=== PATIENT | male | born 1970 | race Caucasian/White ===

== ENCOUNTER 2019-04-07 13:53 | Inpatient (IN) ==
[2019-04-07] MEDS ORDERED: SODIUM CHLORIDE 0.9% 1000ML 1,000 ML IV SCH (14:30)
[2019-04-07] MEDS ORDERED: LORazepam 0.5 MG/1 ML VIAL IV STA (14:30)
--- NOTE | 2019-04-07 14:39 | Emergency Department Note ---
Entered by Yulissa Cheema acting as a scribe for History of Present Illness General Chief complaint: Respiratory Problems Stated complaint: DX W/SMALL PE IN RT LUNG, SOB Time Seen by Provider: 04/07/19 14:16 Source: patient History of Present Illness Onset (ago): week(s) 3 Location: chest Pain Consistency: + other (persistent ) Maximum Pain Intensity: 0 Quality: + other (shortness of breath ) Associated symptoms: + other (positive leg swelling); no chest pain The patient is a 48 year old male who presents to the Emergency Room with complaints of persistent shortness of breath that began 3 weeks prior to arrival. The patient states that he was at [facility] 3 days ago and states that dopplers of his legs were negative but a CT of his chest showed a small PE in his right lung. He reports that he signed out AMA from this hospital as he did not feel comfortable being admitted there. The patient states that he was given one Lovenox shot while in [place] but was not given a prescription. The patient reports intermittent swelling in his legs, and states that he has had persistent leg swelling over the past 3 weeks. The patient denies chest pain. He states that he believes his shortness of breath is due to smoking and anxiety. The patient denies recent long trips or surgery. He denies alcohol or drug use, but states that he smokes between one and two packs of cigarettes per day. The patient states Home Medications Home Medications Medication Instructions Recorded Confirmed Type No Known Home Medications 04/07/19 04/07/19 History Allergies Allergy/AdvReac Type Severity Reaction Status Date / Time cefaclor [From Ceclor] Allergy Severe Hives Unverified 04/07/19 15:13 Penicillins Allergy Severe Rash Unverified 04/07/19 15:13 bee venom protein (honey bee) Allergy Intermediate Unknown Unverified 04/07/19 15:13 cat dander Allergy Intermediate itchy Unverified 04/07/19 15:13 watery eyes dust Allergy Intermediate itchy Uncoded 04/07/19 15:13 watery eyes Past Med/Surg History Medical History No significant past medical history Social History Feels Safe at Home: Yes Smoking Status: Current every day smoker Review of Systems See HPI for pertinent positives & negatives. and A total of 10 systems reviewed and were otherwise negative Physical Exam Vital Signs Vital Signs - 24 hr 04/07/19 14:07 04/07/19 14:23 04/07/19 14:27 Temperature 37.1 C Temperature Source Oral Sepsis Recent Fever Within 48 Hours No Sepsis Action Taken by Nursing No Action Required Pulse Rate 126 H 128 H 129 H Pulse Rate from SpO2 Sensor Pulse Rhythm Regular Pulse Strength Normal Respiratory Rate 24 28 H 34 H Respiratory Effort / Characteristics Non-Labored Spontaneous Respiratory Depth Normal Respiratory Pattern Regular Blood Pressure 146/98 H 140/118 H Blood Pressure Mean 114 125 Pulse Oximetry 97 Oxygen Delivery Method Room Air 04/07/19 14:30 04/07/19 14:40 04/07/19 14:50 Temperature Temperature Source Sepsis Recent Fever Within 48 Hours Sepsis Action Taken by Nursing Pulse Rate 132 H 123 H 122 H Pulse Rate from SpO2 Sensor Pulse Rhythm Pulse Strength Respiratory Rate 22 29 H 22 Respiratory Effort / Characteristics Respiratory Depth Respiratory Pattern Blood Pressure 147/121 H Blood Pressure Mean 129 Pulse Oximetry Oxygen Delivery Method 04/07/19 14:58 04/07/19 15:00 04/07/19 15:30 Temperature Temperature Source Sepsis Recent Fever Within 48 Hours Sepsis Action Taken by Nursing Pulse Rate 120 H 121 H 122 H Pulse Rate from SpO2 Sensor Pulse Rhythm Regular Pulse Strength Respiratory Rate 22 16 22 Respiratory Effort / Characteristics Respiratory Depth Respiratory Pattern Blood Pressure 150/108 H Blood Pressure Mean 122 Pulse Oximetry 94 Oxygen Delivery Method Room Air 04/07/19 16:10 04/07/19 16:30 04/07/19 17:00 Temperature Temperature Source Sepsis Recent Fever Within 48 Hours Sepsis Action Taken by Nursing Pulse Rate 120 H 118 H 120 H Pulse Rate from SpO2 Sensor Pulse Rhythm Pulse Strength Respiratory Rate 38 H 19 25 H Respiratory Effort / Characteristics Respiratory Depth Respiratory Pattern Blood Pressure 152/112 H 143/101 H 156/110 H Blood Pressure Mean 125 115 125 Pulse Oximetry Oxygen Delivery Method 04/07/19 17:31 04/07/19 18:00 04/07/19 18:30 Temperature Temperature Source Sepsis Recent Fever Within 48 Hours Sepsis Action Taken by Nursing Pulse Rate 122 H 124 H 124 H Pulse Rate from SpO2 Sensor 124 H 126 H Pulse Rhythm Pulse Strength Respiratory Rate 20 21 18 Respiratory Effort / Characteristics Respiratory Depth Respiratory Pattern Blood Pressure 167/114 H 144/117 H 136/121 H Blood Pressure Mean 131 126 126 Pulse Oximetry 97 97 Oxygen Delivery Method GENERAL: Patient is ashen in appearance. He appears anxious. EYES: The conjunctivae are clear. The pupils are round and reactive. EARS, NOSE, MOUTH AND THROAT: The nose is without any evidence of any deformity. Mucous membranes are moist tongue is midline NECK: The neck is nontender and supple. RESPIRATORY: Tachypnea was noted. There was mild conversational dyspnea noted. Diminished breath sounds are noted in the right lung field. CARDIOVASCULAR: Tachycardic rate with regular rhythm was noted. There is no def inite murmur noted. GASTROINTESTINAL: The abdomen is soft. Bowel sounds are present in all quadrants . Abdomen is nontender MUSCULOSKELETAL/EXTREMITIES: There is no evidence of gross deformity full range of motion is noted in the hips and shoulders SKIN: There is no obvious evidence of any rash. Skin is cool and diaphoretic. There is pedal edema bilaterally with venous stasis changes. NEUROLOGIC: Patient is awake alert and oriented x3. Course 1423: Past medical records reviewed. The patient was evaluated in room B11A. A complete history and physical exam was performed. 1636: I updated the patient on all results. 1715: [facility] for further evaluation. Consultations Consultation #1: [facility] for further evaluation. Time: 17:15 Administered Medications Ioversol (Optiray 320 125ml) 109 ml IV ONCE PRN PRN Reason: Interaction Checking Stop: 04/11/19 16:05 Last Admin: 04/07/19 16:07 Dose: 109 ml Documented by: [id number] Nicotine (Nicoderm Cq) 14 mg TD QAM [facility] Stop: 05/07/19 14:44 Last Admin: 04/07/19 14:58 Dose: 14 mg Documented by: [id number] Discontinued Medications Heparin Sodium (Porcine) (Heparin Sodium (Porcine)) Confirm Administered Dose 5,000 units .ROUTE .STK-MED ONE Stop: 04/07/19 16:22 Last Admin: 04/07/19 16:26 Dose: 5,000 units Documented by: [id number] Cosigned by: [id number] Heparin Sodium/Dextrose () 1 ea IV NOW STA; Protocol Stop: 04/07/19 15:47 Last Admin: 04/07/19 16:35 Dose: Not Given Documented by: [id number] Heparin Sodium/Dextrose (Heparin Sodium/Dextrose) Confirm Administered Dose 25,000 units IV .STK-MED ONE Stop: 04/07/19 16:21 Last Admin: 04/07/19 16:28 Dose: 1,350 units Documented by: [id number] Cosigned by: [id number] Sodium Chloride (Nss 1000ml) 1,000 mls @ 999 mls/hr IV .Q1H1M JAYLEEN Stop: 04/07/19 15:30 Last Infusion: 04/07/19 16:14 Dose: 0 mls/hr Documented by: [id number] Admin: 04/07/19 15:10 Dose: 999 mls/hr Documented by: [id number] Lorazepam (Ativan) 0.5 mg in 1 mls @ 1 mls/min IV NOW STA Stop: 04/07/19 14:31 Last Admin: 04/07/19 14:58 Dose: 1 mls/min Documented by: [id number] Medical Decision Making Differential Diagnosis Differential diagnosis: Etiologies such as cardiac ischemia, aortic dissection, pulmonary embolism, pneumonia, pneumothorax, musculoskeletal, infections, pericarditis, myocarditis, esophageal rupture, gastrointestinal, as well as others were entertained. Medical Records Attestation: I reviewed the patient's medical records. Home Medications Current Medication List: was personally reviewed by me Laboratory Data Attestation: I reviewed the patient's lab results. Result diagrams: 04/07/19 14:48 04/07/19 14:48 Lab Results 04/07/19 04/07/19 04/07/19 Range/Units 14:48 14:48 14:48 WBC 11.64 H (4.8-10.8) K/uL RBC 4.72 (4.7-6.1) M/uL Hgb 14.3 (14.0-18.0) g/dL POC Hgb (14.0-18.0) g/dl Hct 42.2 (42-52) % POC Hct (42-52) % MCV 89.4 (80-100) fL MCH 30.3 (25-34) pg MCHC 33.9 (32-36) g/dL RDW Std Deviation 46.7 H (36.4-46.3) fL RDW Coeff of Alexa 14.2 (11.5-14.5) % Plt Count 273 (130-400) K/uL MPV 9.8 (7.4-10.4) fL Immature Gran % (Auto) 0.4 % Neut % (Auto) 68.5 % Lymph % (Auto) 16.8 % [place] % (Auto) 10.8 % Eos % (Auto) 3.0 % Baso % (Auto) 0.5 % Immature Gran # (Auto) 0.05 H (0.00-0.02) K/uL Neut # (Auto) 7.96 H (1.4-6.5) K/uL Lymph # (Auto) 1.96 (1.2-3.4) K/uL [place] # (Auto) 1.26 H (0.11-0.59) K/uL Eos # (Auto) 0.35 (0-0.5) K/uL Baso # (Auto) 0.06 (0-0.2) K/uL PT 10.9 (9.0-12.0) Seconds INR 1.1 (0.9-1.1) APTT 24.7 (21.0-31.0) Seconds PTT Ratio 0.9 POC Sodium (135-144) mEq/L Sodium 139 (136-145) mmol/L POC Potassium (3.3-5.0) mEq/L Potassium 4.6 (3.5-5.1) mmol/L POC Chloride (101-112) mEq/L Chloride 104 (98-107) mmol/L Carbon Dioxide 30 (21-32) mmol/L POC Total CO2 (24-31) mEq/l Anion Gap 5.0 (3-11) POC Anion Gap (16-25) mmol/L POC BUN (7-18) mg/dl BUN 21 H (7-18) mg/dl Creatinine 1.14 (0.6-1.4) mg/dl POC Creatinine (0.6-1.3) mg/dl Est Cr Clr Drug Dosing 82.7 ml/min Est GFR ( Amer) 88.3 Est GFR (Non-Af Amer) 76.2 BUN/Creatinine Ratio 18.3 (10-20) Glucose 134 H (70-99) mg/dl POC Glucose (other) (70-99) mg/dl Calcium 9.1 (8.5-10.1) mg/dl POC Ioniz Calcium Nicola (1.12-1.32) mmol/l Total Bilirubin 0.4 (0.2-1) mg/dl AST 22 (15-37) U/L ALT 45 (12-78) U/L Alkaline Phosphatase 119 H (45-117) U/L Troponin I 0.046 H* (0-0.045) ng/ml Total Protein 6.8 (6.4-8.2) gm/dl Albumin 3.4 (3.4-5.0) gm/dl Globulin 3.4 (2.5-4.0) gm/dl Albumin/Globulin Ratio 1.0 (0.9-2) Lipase 120 (73-393) U/L 04/07/19 Range/Units 14:52 WBC (4.8-10.8) K/uL RBC (4.7-6.1) M/uL Hgb (14.0-18.0) g/dL POC Hgb 14.3 (14.0-18.0) g/dl Hct (42-52) % POC Hct 42 (42-52) % MCV (80-100) fL MCH (25-34) pg MCHC (32-36) g/dL RDW Std Deviation (36.4-46.3) fL RDW Coeff of Alexa (11.5-14.5) % Plt Count (130-400) K/uL MPV (7.4-10.4) fL Immature Gran % (Auto) % Neut % (Auto) % Lymph % (Auto) % [place] % (Auto) % Eos % (Auto) % Baso % (Auto) % Immature Gran # (Auto) (0.00-0.02) K/uL Neut # (Auto) (1.4-6.5) K/uL Lymph # (Auto) (1.2-3.4) K/uL [place] # (Auto) (0.11-0.59) K/uL Eos # (Auto) (0-0.5) K/uL Baso # (Auto) (0-0.2) K/uL PT (9.0-12.0) Seconds INR (0.9-1.1) APTT (21.0-31.0) Seconds PTT Ratio POC Sodium 137 (135-144) mEq/L Sodium (136-145) mmol/L POC Potassium 4.5 (3.3-5.0) mEq/L Potassium (3.5-5.1) mmol/L POC Chloride 108 (101-112) mEq/L Chloride (98-107) mmol/L Carbon Dioxide (21-32) mmol/L POC Total CO2 27 (24-31) mEq/l Anion Gap (3-11) POC Anion Gap 7.0 L (16-25) mmol/L POC BUN 21 H (7-18) mg/dl BUN (7-18) mg/dl Creatinine (0.6-1.4) mg/dl POC Creatinine 1.0 (0.6-1.3) mg/dl Est Cr Clr Drug Dosing ml/min Est GFR ( Amer) Est GFR (Non-Af Amer) BUN/Creatinine Ratio (10-20) Glucose (70-99) mg/dl POC Glucose (other) 142 H (70-99) mg/dl Calcium (8.5-10.1) mg/dl POC Ioniz Calcium Nicola 1.14 (1.12-1.32) mmol/l Total Bilirubin (0.2-1) mg/dl AST (15-37) U/L ALT (12-78) U/L Alkaline Phosphatase (45-117) U/L Troponin I (0-0.045) ng/ml Total Protein (6.4-8.2) gm/dl Albumin (3.4-5.0) gm/dl Globulin (2.5-4.0) gm/dl Albumin/Globulin Ratio (0.9-2) Lipase (73-393) U/L Imaging Data Radiologist's Impression: Radiology results as stated below per my review and the radiologist's interpretation: CT angio chest PE protocol CT DOSE: 386.43 mGy.cm HISTORY: 48 years-old Male with Chest Pain, eval for PE. Acute chest pain TECHNIQUE: Multiple CTA images of the chest were obtained after the intravenous administration of 109 ml Optiray 320. Coronal and sagittal MIPS were obtained from the axial data set and were submitted for review. All measurements were ob tained according to NASCET criteria. A dose lowering technique was utilized adhering to the principles of ALARA. COMPARISON: None. FINDINGS: CTA: Cardiomegaly. Coronary arterial calcifications also noted. The left heart structures and thoracic aorta are not well opacified secondary to contrast bolus timing. Reflux of contrast into the IVC and hepatic veins. The pulmonary arterial tree is opacified to the level of the distal segmental branches. There are multiple filling defects noted within segmental branches of the bilateral lower lobes compatible with pulmonary emboli (for example image 105 series 4 and image 149 of series 4). The subsegmental branches are not well opacified secondary to contrast bolus timing. No evidence of associated right heart strain. Contrast opacified collateral veins of the right shoulder. CT CHEST: No dominant thyroid nodule identified. No definite adenopathy by CT size criteria. Trace right pleural effusion. Dependent subsegmental bibasilar opacities are suggestive of atelectasis. No definite pulmonary infarction identified. No overt pulmonary edema or lobar airspace consolidation typical for pneumonia. There are a few fissural lymph nodes seen about the left lung base adjacent to the lingula. Central airways appear to be patent. No acute process of the imaged upper abdomen. Soft tissues are within normal limits. Bones of the chest appear grossly intact. IMPRESSION: 1. Segmental pulmonary emboli of the bilateral lower lobes. No evidence of right heart strain or definite pulmonary infarction. 2. Mild subsegmental dependent bibasilar atelectasis with trace right pleural effusion. 3. Cardiomegaly with coronary arterial calcifications. The above report was generated using voice recognition software. It may contain grammatical, syntax or spelling errors. Electronically signed by: Peter Key M.D. 04/07/2019 4:19 PM ECG Data Attestation: I personally reviewed and interpreted this ECG as follows: Indication: SOB/dyspnea Rate (beats per minute): 122 Rhythm: sinus tachycardia Findings: + other (LVH; no acute ST segment abnormalities) Comparison ECG Date: no prior available Blood Pressure Blood Pressure Findings: Elevated blood pressure Blood Pressure Disposition: further management by hospitalist TINY Narrative The patient is a 48-year-old male with a long smoking history who presented to the emergency department for an evaluation of chest pain. The patient was tachycardic. He was not significantly hypoxic. He states that he was evaluated at [facility] and diagnosed with a pulmonary embolism this week. The patient signed out AGAINST MEDICAL ADVICE and was not started on blood thinners at that time. The patient was started on heparin in the emergency department. The patient was also given a nicotine patch as well as Ativan for significant anxiety. He was treated with IV fluids. I discussed the patient's laboratory and radiographic studies with him. He was reevaluated multiple times. Because of his diagnosis I also discussed his case with the on-call [facility] talist. They have agreed to evaluate the patient in the emergency department for further management and disposition Impression & Plan Pulmonary embolism, Elevated troponin, Sinus tachycardia Critical Care Time Critical Care Time: Yes Total Critical Care Time: 60 I have personally spent greater than 60 minutes of critical care time in the direct management of this patient. This includes bedside care, interpretation of diagnostic studies, and testing, discussion with consultants, patient, and family members, and other required patient management activities. This 60 minutes is in excess of all separately billable procedures. Discharge Plan Visit Data Chief Complaint: Respiratory Problems Stated Complaint: DX W/SMALL PE IN RT LUNG, SOB ED Provider: Tylor Bruce Discharge Problem: Pulmonary embolism, Elevated troponin, Sinus tachycardia Patient Disposition: Being Evaluated by Hospitalist Forms Stand Alone Forms: [facility] Prescriptions Prescriptions: No Action No Known Home Medications RF: 0 Referrals Referrals: PCP,NO [Primary Care Provider] - Discharge Problem: Pulmonary embolism Qualifiers: Pulmonary embolism type: unspecified Chronicity: acute Acute cor pulmonale presence: without acute cor pulmonale Qualified Code(s): I26.99 - Other pulmonary embolism without acute cor pulmonale The scribe's documentation has been prepared under my direction and personally reviewed by me in its entirety. I confirm that the note above accurately reflects all work, treatment, procedures, and medical decision making performed by me.
[2019-04-07 14:58] LABS: Basophils # (auto) 0.06 K/uL (0-0.2); Basophils % (auto) 0.5 %; Eosinophils # (auto) 0.35 K/uL (0-0.5); Hematocrit (blood only) 42.2 % (42-52); Hemoglobin 14.3 g/dL (14.0-18.0); Immature Granulocytes # (auto) 0.05 K/uL (0.00-0.02); Immature Granulocytes % (auto) 0.4 %; Lymphocytes # (auto) 1.96 K/uL (1.2-3.4); Lymphocytes % (auto) 16.8 %; Mean Corpuscular Hgb Conc 33.9 g/dL (32-36); Mean Corpuscular Volume 89.4 fL (80-100); Mean Platelet Volume 9.8 fL (7.4-10.4); Monocytes # (auto) 1.26 K/uL (0.11-0.59); Monocytes % (auto) 10.8 %; Neutrophils # (auto) 7.96 K/uL (1.4-6.5); Neutrophils % (auto) 68.5 %; Platelet Count 273 K/uL (130-400); RDW Coefficient of Variation 14.2 % (11.5-14.5); RDW Standard Deviation 46.7 fL (36.4-46.3); Red Blood Count 4.72 M/uL (4.7-6.1); White Blood Count 11.64 K/uL (4.8-10.8)
[2019-04-07] MEDS: NICOTINE 14 MG/24 HR PATCH TD SCH (14:58)
[2019-04-07 15:07] LABS: iSTAT Hemoglobin 14.3 g/dl (14.0-18.0); iSTAT Ionized Calcium 1.14 mmol/l (1.12-1.32); iSTAT Potassium 4.5 mEq/L (3.3-5.0)
[2019-04-07 15:09] LABS: INR 1.1 (0.9-1.1); Partial Thromboplastin Ratio 0.9; Partial Thromboplastin Time 24.7 Seconds (21.0-31.0); Prothrombin Time 10.9 Seconds (9.0-12.0)
[2019-04-07 15:17] LABS: Albumin Level 3.4 gm/dl (3.4-5.0); BUN Creatinine Ratio 18.3 (10-20); Calcium 9.1 mg/dl (8.5-10.1); Creatinine Clr Calc Pharmacy 82.7 ml/min; Est GFR (African American) 88.3; Est GFR (Non-African American) 76.2; Potassium 4.6 mmol/L (3.5-5.1)
[2019-04-07 15:35] LABS: Bilirubin,Total 0.4 mg/dl (0.2-1); Globulin 3.4 gm/dl (2.5-4.0); Total Protein 6.8 gm/dl (6.4-8.2); Troponin I 0.046 ng/ml (0-0.045)
[2019-04-07] MEDS ORDERED: OPTIRAY 320 125ml IV PRN (16:06)
[2019-04-07] MEDS ORDERED: HEPARIN 25000 UNIT/500 ML D5W IV ONE (16:20)
--- NOTE | 2019-04-07 16:20 | CT Scan Report ---
CT angio chest PE protocol CT DOSE: 386.43 mGy.cm HISTORY: 48 years-old Male with Chest Pain, eval for PE. Acute chest pain TECHNIQUE: Multiple CTA images of the chest were obtained after the intravenous administration of 109 ml Optiray 320. Coronal and sagittal MIPS were obtained from the axial data set and were submitted for review. All measurements were obtained according to NASCET criteria. A dose lowering technique w as utilized adhering to the principles of ALARA. COMPARISON: None. FINDINGS: CTA: Cardiomegaly. Coronary arterial calcifications also noted. The left heart structures and thoracic aor ta are not well opacified secondary to contrast bolus timing. Reflux of contrast into the IVC and hep atic veins. The pulmonary arterial tree is opacified to the level of the distal segmental branches. T here are multiple filling defects noted within segmental branches of the bilateral lower lobes compat ible with pulmonary emboli (for example image 105 series 4 and image 149 of series 4). The subsegment al branches are not well opacified secondary to contrast bolus timing. No evidence of associated righ t heart strain. Contrast opacified collateral veins of the right shoulder. CT CHEST: No dominant thyroid nodule identified. No definite adenopathy by CT size criteria. Trace right pleura l effusion. Dependent subsegmental bibasilar opacities are suggestive of atelectasis. No definite pul monary infarction identified. No overt pulmonary edema or lobar airspace consolidation typical for pn eumonia. There are a few fissural lymph nodes seen about the left lung base adjacent to the lingula. Central airways appear to be patent. No acute process of the imaged upper abdomen. Soft tissues are within normal limits. Bones of the alcon st appear grossly intact. IMPRESSION: 1. Segmental pulmonary emboli of the bilateral lower lobes. No evidence of right heart strain or defi nite pulmonary infarction. 2. Mild subsegmental dependent bibasilar atelectasis with trace right pleural effusion. 3. Cardiomegaly with coronary arterial calcifications. The above report was generated using voice recognition software. It may contain grammatical, syntax o r spelling errors. Electronically signed by: Peter Key M.D. 04/07/2019 4:19 PM
[2019-04-07] MEDS ORDERED: HEPARIN SOD 5,000 UNIT/0.5 ML VIAL ONE (16:21)
--- NOTE | 2019-04-07 18:00 | History & Physical Report ---
Date of Service April 07, 2019 Assessment & Plan (1) Pulmonary embolism: 48 y/o M who denies a significant medical history, although he does smoke 2 packs of cigarettes daily and has not been to an MD in over 10 years. He presented to [facility] with dyspnea and LE edema. He was diagnosed with BL PEs. He states that LE dopplers were negative. He then proceeded to leave A after receiving a dose of SQ Lovenox. He presents today with persistent symptoms. He denies CP and did not display hypoxia, however, he was considerably tachycardic at the time of evaluation. A CTA was repeated and demonstrated segmental pulmonary emboli of the bilateral lower lobes without evidence of right heart strain or definite pulmonary infarction. Cardiomegaly with coronary arterial calcifications is also seen. He states his edema has been present and progressive for 2 weeks. The pt's BP was persistently elevated while in the ER. Initial labs were notable for an elevated troponin. An EKG did not show a strain patter. Sinus tach and LVH were apparent. 1) BL PE - no known precipitating factors. Placed on Lovenox. Hypercoag workup can be completed in the outpt setting. A malignancy workup would make good sense considering his family history and heavy smoking. 2) Edema - relatively new-onset. An echo is pending as vein engorgement on exam in addition to the edema and an elevated trop may indicate heart strain. It is noted that his edema preceded dyspnea and the PE finding by 2 weeks per the pt. He examines as SVC syndrome considering the degree of engorgement of veins over his head and neck, however, there was no mention of a mass on CT. 3) Elevated trop - likely owing to PEs. There is significant coronary calcification on the CT, so the pt is at risk of early CAD. We will check a lipid profile an may need to consult cardio as it is not clear if he will follow-up. We will trend his enzymes. 4) HTN - likely undiagnosed - we will lower his pressure without rate agents as he is likely compensating with tachycardia. Norvasc or an SALONI will be started. 5) Smoking - he is told he will need to stop smoking - he provides that he may benefit from treatment for anxiety. A patch was applied in the ER. Full code - Lovenox prophylaxis Total time for this admit including review of labs, meds, imaging, records - discussion with pt and ER attending - 37 min Present on Admission?: Yes (2) Elevated troponin: Present on Admission?: Yes History of Present Illness Chief Complaint: CP, SOB Primary Care Provider: NO PCP 48 y/o M who denies a significant medical history, although he does smoke 2 packs of cigarettes daily and has not been to an MD in over 10 years. He presented to [facility] with dyspnea and LE edema. He was diagnosed with BL PEs. He states that LE dopplers were negative. He then proceeded to leave A after receiving a dose of SQ Lovenox. He presents today with persistent symptoms. He denies CP and did not display hypoxia, however, he was considerably tachycardic at the time of evaluation. A CTA was repeated and demonstrated segmental pulmonary emboli of the bilateral lower lobes without evidence of right heart strain or definite pulmonary infarction. Cardiomegaly with coronary arterial calcifications is also seen. He states his edema has been present and progressive for 2 weeks. The pt's BP was persistently elevated while in the ER. Initial labs were notable for an elevated troponin. An EKG did not show a strain patter. Sinus tach and LVH were apparent. PMH: Denies known PMH Surgical: Denies Social: His current vocation is caring for his elderly mother. He smokes 2 packs/day for > 20 yrs. He does not drink alcohol, smokes marijuana rarely. Family: Father owing to COPD, bladder CA - had bypass for CAD. Mother is alive with dementia. Allergies Allergy/AdvReac Type Severity Reaction Status Date / Time cefaclor [From [facility]] Allergy Severe Hives Unverified 04/07/19 15:13 Penicillins Allergy Severe Rash Unverified 04/07/19 15:13 bee venom protein (honey bee) Allergy Intermediate Unknown Unverified 04/07/19 15:13 cat dander Allergy Intermediate itchy Unverified 04/07/19 15:13 watery eyes dust Allergy Intermediate itchy Uncoded 04/07/19 15:13 watery eyes Home Medications Home Medications Medication Instructions Recorded Confirmed Type No Known Home Medications 04/07/19 04/07/19 History Past Med/Surg History Medical History No significant past medical history Social History Feels Safe at Home: Yes Smoking Status: Current every day smoker Review of Systems Review of Systems: Gen: Denies fevers, night sweats, rigors, fatigue, malaise, weight loss/gain ENT: Denies congestion, throat pain, hearing loss Eyes: Denies acute visual changes CV: Reported pleuritic CP initially Pulmonary: + dyspnea GI: Denies N/V, diarrhea, constipation Neuro: Denies acute or unilateral weakness, acute gait impairment, headache or acute visual changes Musculoskeletal: Progressive LE edema Endocrine: Denies polydipsia, polyuria Skin: Denies acute rashes or ulcers - LE erythema Physical Exam Physical Exam: General: Anxious, middle aged M, AAO x 3, no distress ENT: No erythema or exudates, no thrush Eyes: ANNY, EOMI Head and neck: Distention of veins is prominent over the pt's neck, head and clavicular area. Chest/heart: Nontender, S1,2, tachy, no murmurs Lungs: CTAB, no wheezing or crackles Abdomen: Nontender, nondistended, BS+ Neuro: AAO x 3, speech is clear, no unilateral weakness or loss of sensation, coordination intact Musculoskeletal: No joint inflammation, muscle tenderness, FROM Skin: No acute rashes or ulcers Extremities: No clubbing, cyanosis - +3 edema BL - erythema without warmth Results & Data Vital Signs (Past 12 Hours) Vital Signs Temp Pulse Resp BP Pulse Ox 04/07/19 16:30 118 H 19 143/101 H 04/07/19 16:10 120 H 38 H 152/112 H 04/07/19 15:30 122 H 22 150/108 H 04/07/19 15:00 121 H 16 04/07/19 14:58 120 H 22 94 04/07/19 14:50 122 H 22 04/07/19 14:40 123 H 29 H 04/07/19 14:30 132 H 22 147/121 H 04/07/19 14:27 129 H 34 H 04/07/19 14:23 128 H 28 H 140/118 H 04/07/19 14:07 98.8 F 126 H 24 146/98 H 97 Diagnostic Findings CTA: 1. Segmental pulmonary emboli of the bilateral lower lobes. No evidence of right heart strain or definite pulmonary infarction. 2. Mild subsegmental dependent bibasilar atelectasis with trace right pleural effusion. 3. Cardiomegaly with coronary arterial calcifications. PG Care Time/CCT Total # of Minutes Spent Total Time Spent with Patient: Total time spent is greater than 50% in coordination of care (as documented) at patient's floor/unit and/or counseling patient: (1) Pulmonary embolism Acute cor pulmonale presence: without acute cor pulmonale Chronicity: acute Pulmonary embolism type: unspecified Qualified Code(s): I26.99 - Other pulmonary embolism without acute cor pulmonale
[2019-04-07] MEDS ORDERED: Heparin Adult LOW DOSE Wt-Based Dextrose 5% 25,000 units/500 mL IV SCH (19:00)
[2019-04-07] MEDS ORDERED: POLYETHYLENE (MIRALAX) 17 GM PACK PO PRN (19:41)
[2019-04-07] MEDS ORDERED: ZOLPIDEM TARTRATE 5 MG TAB PO PRN (19:41)
[2019-04-07] MEDS ORDERED: LISINOPRIL 5 MG TAB PO ONE (19:41)
[2019-04-07] MEDS ORDERED: MAGNESIUM HYDROXIDE SUSP 30 ML UDC PO PRN (19:41)
[2019-04-07] MEDS ORDERED: ONDANSETRON INJ 2 MG/ML 2 ML VIAL IV PRN (19:41)
[2019-04-07] MEDS ORDERED: ALUMINUM/MAGNESIUM SUSP 30 ML UDC PO PRN (19:41)
[2019-04-07] MEDS: ENOXAPARIN 80 MG/0.8 ML SYR SQ SCH (21:00)
[2019-04-08] MEDS: ACETAMINOPHEN 325 MG TAB PO PRN ×2 (00:43→22:40)
[2019-04-08] MEDS: ENOXAPARIN 80 MG/0.8 ML SYR SQ SCH (07:47)
[2019-04-08] MEDS ORDERED: NICOTINE 14 MG/24 HR PATCH TD SCH (09:00)
[2019-04-08] MEDS: NICOTINE 14 MG/24 HR PATCH TD SCH (09:40)
[2019-04-08] MEDS ORDERED: FUROSEMIDE 80 MG in SYRINGE 0 ML IV ONE (10:20)
[2019-04-08] MEDS ORDERED: FUROSEMIDE 40 MG in SYRINGE 0 ML IV ONE (10:45)
[2019-04-08] MEDS: ASPIRIN 81 MG ECTAB PO SCH (10:54)
[2019-04-08] MEDS ORDERED: LORazepam 0.5 MG/1 ML VIAL IV PRN (11:02)
--- NOTE | 2019-04-08 11:06 | Hospitalist Progress Note ---
Date of Service April 08, 2019 Assessment & Plan (1) Pulmonary embolism: This pt is a 48 y/o male who denies a significant medical history, although he does smoke 2 packs of cigarettes daily and has not been to an MD in over 10 years. He presented to [facility] with dyspnea and LE edema. He was diagnosed with BL PEs. He states that LE dopplers were negative. He then proceeded to leave [facility] after receiving a dose of SQ Lovenox. He presents here 2 days later with persistent symptoms. He denies CP and did not display hypoxia, however, he was considerably tachycardic at the time of evaluation. A CTA was repeated and demonstrated segmental pulmonary emboli of the bilateral lo wer lobes without evidence of right heart strain or definite pulmonary infarction. Cardiomegaly with coronary arterial calcifications is also seen. He states his edema has been present and progressive for 2 weeks. Initial labs were notable for an elevated troponin. An EKG did not show a strain pattern. Sinus tach and LVH were apparent. BL PE - no known precipitating factors, but now with known severely reduced LV function, could have caused a low flow state and venous congestion in legs leading to DVTs. Reportedly, Dopplers LEs at [place] were negative, but may have moved all clot to the lungs. No evidence of Pulm malignancy on CT chest. Not requiring O2 Has some mild RV dysfunction on ECHO but this is likely more from left sided heart failure -Placed on Lovenox, but has phobia of needles--> change to heparin gtt and eventually to Xarelto upon discharge (after cardiac cath) for at least 6 months. -A malignancy workup would make sense considering his family history and heavy smoking. (2) Cardiomyopathy: LVEF 15-20% on ECHO With coronary artery calcifications seen on CT chest and heavy smoking history, likely ischemic in nature -plan for cardiac cath once tuned up from a CHF perspective-perhaps in the next 1-2 days -will need ongoing close f/u with Cardio after discharge (3) Acute systolic CHF (congestive heart failure): New, Severe LV dysfunction as above, possibly ischemic -diurese with IV lasix 40mg bid -follow BMP, Mg++ and replace lytes as needed -daily weights, strict I/Os, low Na+ diet, fluid restrict -eventually will need to add on beta kunal, ACEi -needs ischemic eval as above, cardiac cath likely in the next 2 days (4) CAD (coronary artery disease), [place] coronary artery: Suspected, due to coronary artery calcifications seen on chest CT, CHF, and +troponin Secondary to smoking, +FH -start ASA 81mg daily -start atorvastatin 80mg daily -will add beta kunal likely tomorrow after diuresis -check lipid panel, HgbA1C (5) Elevated troponin: mildly elevated at 0.046/0.053 Secondary to strain from CHF in setting of likely underlying CAD -ECG with nonspecific ST-T changes -plan for cardiac cath as above (6) Pulmonary hypertension: Moderate, as seen on ECHO here Could be secondary to Pulm disease or PEs or from hypervolemia -diurese (7) Mitral regurgitation: Mod-severe seen on ECHO here -secondary to LV dysfunction and hypervolemia? Or the cause of LV dysfunction i.e. primary MR -Cardio suggests either LOLITA or repeating TTE after diuresis to reassess (8) Sinus tachycardia: secondary to severely reduced LVEF, compensatory -not as likely to be from PEs -monnitor on tele -start beta kunal after CHF is compensated (9) Situational anxiety: worsening anxiety over many months with staying at home all the time, taking care fo declining mother -denies depressive symptoms, denies SI or HI Also with severe phobia of needles -will try to minimize blood draws as much as possible -order IV ativan prn anxiety -consider adding SSRI such as Zoloft prior to discharge -he declines Psychiatric consultation (10) Tobacco abuse: SMokes 2 PPD -encouraged cessation -continue Nicotine patch and increase dose to 21mg Prophylaxis--> heparin gtt Dispo-remain on PCU Subjective Pt denies SOB or CP. He is urinating quite a bit since receiving lasix. Denies lightheadedness or abdominal pain. He tells me repeatedly about his severe phobia of needles. He feels quite anxious being in the hospital and reports overall generalized anxiety worsening the last few months with taking care of his mom who has demen tia and is declining. He stays with her 25/04. He is also anxious upon hearing of his new cardiomyopathy and blood clots in his lungs. Tele with sinus tach 100s-120s. I discussed the case with the Lead Etl Developer today Review of Systems Review of Systems: All systems reviewed & are unremarkable except as noted in HPI & below Physical Exam Constitutional: average body habitus, cooperative and + edematous; no acute distress Eyes: PERRL, conjunctivae normal, anicteric sclerae ENMT: external ear and nose normal, oropharynx normal Neck: trachea midline, no thyromegaly Respiratory: normal respiratory effort; no labored breathing Auscultation: no crackles, no rhonchi and no wheezes Cardiovascular: Rate/Rhythm: regular rhythm and + tachycardic Heart Sounds: + murmur (2/6 at LLSB) Vessels: + JVD Extremities: + edema (2+ pitting edema of legs to the knees bilat) Gastrointestinal (Abdomen): normal bowel sounds, soft, nontender, no hepatosplenomegaly Musculoskeletal: Extremities: no cyanosis and no clubbing Skin: + rash (bilat legs with mild erythema and pinpoint erythematous rash anteriorly) and + scar (multiple small, circular purplish scars on upper arms, thighs from "picking) Neurologic: moves all extremities and awake; no focal motor deficits Psychiatric: Orientation: alert, oriented x 3 and cooperative Eye Contact: good eye contact Speech: + pressured speech Affect: + anxious affect Mood: + anxious mood Thought Process: goal directed thought process Suicidal Thoughts: denies suicidal thoughts Homicidal Thoughts: denies homicidal thoughts Results & Data Vital Signs (Past 12 Hours) Vital Signs Temp Pulse Pulse Resp BP Pulse Ox Pulse Ox 04/08/19 08:43 37.2 C 110 H 18 133/88 98 04/08/19 08:37 97 04/08/19 08:33 112 H 04/08/19 08:29 97 04/08/19 03:42 36.3 C L 102 H 21 141/99 H 97 04/08/19 00:00 115 H 118 H 20 132/96 99 Laboratory Results 04/08/19 04/08/19 04/08/19 Range/Units 22:57 22:57 22:57 WBC 13.06 H (4.8-10.8) K/uL RBC 4.70 (4.7-6.1) M/uL Hgb 14.0 (14.0-18.0) g/dL Hct 41.9 L (42-52) % MCV 89.1 (80-100) fL MCH 29.8 (25-34) pg MCHC 33.4 (32-36) g/dL RDW Std Deviation 46.3 (36.4-46.3) fL RDW Coeff of Alexa 14.1 (11.5-14.5) % Plt Count 239 (130-400) K/uL MPV 10.1 (7.4-10.4) fL Immature Gran % (Auto) 0.4 % Neut % (Auto) 68.9 % Lymph % (Auto) 16.8 % Brule % (Auto) 9.6 % Eos % (Auto) 3.8 % Baso % (Auto) 0.5 % Immature Gran # (Auto) 0.05 H (0.00-0.02) K/uL Neut # (Auto) 9.01 H (1.4-6.5) K/uL Lymph # (Auto) 2.19 (1.2-3.4) K/uL Brule # (Auto) 1.25 H (0.11-0.59) K/uL Eos # (Auto) 0.49 (0-0.5) K/uL Baso # (Auto) 0.07 (0-0.2) K/uL APTT (21.0-31.0) Seconds PTT Ratio Sodium 139 (136-145) mmol/L Potassium 3.5 D (3.5-5.1) mmol/L Chloride 101 (98-107) mmol/L Carbon Dioxide 31 (21-32) mmol/L Anion Gap 7.0 (3-11) BUN 23 H (7-18) mg/dl Creatinine 1.20 (0.6-1.4) mg/dl Est Cr Clr Drug Dosing 81.1 ml/min Est GFR ( Amer) 83.0 Est GFR (Non-Af Amer) 71.6 BUN/Creatinine Ratio 19.4 (10-20) Glucose 129 H (70-99) mg/dl Estimat Average Glucose Pending Hemoglobin A1c Pending Calcium 8.4 L (8.5-10.1) mg/dl Magnesium 1.9 (1.8-2.4) mg/dl TSH 4.240 (0.300-4.500) uIu/ml 04/08/19 Range/Units 22:57 WBC (4.8-10.8) K/uL RBC (4.7-6.1) M/uL Hgb (14.0-18.0) g/dL Hct (42-52) % MCV (80-100) fL MCH (25-34) pg MCHC (32-36) g/dL RDW Std Deviation (36.4-46.3) fL RDW Coeff of Alexa (11.5-14.5) % Plt Count (130-400) K/uL MPV (7.4-10.4) fL Immature Gran % (Auto) % Neut % (Auto) % Lymph % (Auto) % Brule % (Auto) % Eos % (Auto) % Baso % (Auto) % Immature Gran # (Auto) (0.00-0.02) K/uL Neut # (Auto) (1.4-6.5) K/uL Lymph # (Auto) (1.2-3.4) K/uL Brule # (Auto) (0.11-0.59) K/uL Eos # (Auto) (0-0.5) K/uL Baso # (Auto) (0-0.2) K/uL APTT 38.2 H (21.0-31.0) Seconds PTT Ratio 1.4 Sodium (136-145) mmol/L Potassium (3.5-5.1) mmol/L Chloride (98-107) mmol/L Carbon Dioxide (21-32) mmol/L Anion Gap (3-11) BUN (7-18) mg/dl Creatinine (0.6-1.4) mg/dl Est Cr Clr Drug Dosing ml/min Est GFR ( Amer) Est GFR (Non-Af Amer) BUN/Creatinine Ratio (10-20) Glucose (70-99) mg/dl Estimat Average Glucose Hemoglobin A1c Calcium (8.5-10.1) mg/dl Magnesium (1.8-2.4) mg/dl TSH (0.300-4.500) uIu/ml PG Care Time/CCT Total # of Minutes Spent Total Time Spent with Patient: Total time spent is greater than 50% in coordination of care (as documented) at patient's floor/unit and/or counseling patient: (1) Pulmonary embolism Acute cor pulmonale presence: without acute cor pulmonale Chronicity: acute Pulmonary embolism type: unspecified Qualified Code(s): I26.99 - Other pulmonary embolism without acute cor pulmonale
--- NOTE | 2019-04-08 11:26 | Cardiology Consultation ---
Date of Consultation April 08, 2019 Assessment & Plan (1) Acute systolic CHF (congestive heart failure): He is significantly hypervolemic. Recommend Lasix 40 mg IV twice daily starting now. If he does not diuresed sufficiently, we will increase dose and consider vaso dilator to reduce preload. Would try to diurese at least 1-2 L negative today. Strict I&Os, low-sodium diet, and daily weights. We discussed the diagnosis in detail. Based on the fact that he left AMA from outside hospit al 4 days ago and that he mentioned leaving to take care of his mother, there are concerns for medical compliance. We discussed the fact that given his cardiac condition, as well as pulmonary emboli, there is increased mortality and that he may from his cardiac condition, especially if he does not receive treatment. (2) Cardiomyopathy: Etiology not certain but given risk factors and coronary artery calcifications, ischemic heart disease is a possibility. Will not start beta- kunal now as he is decompensated but would like to try to initiate low-dose beta-kunal tomorrow. He received SALONI-inhibitor yesterday. Going forward, would like to continue SALONI-inhibitor or Entresto. Continue diuresis. Cardiac catheterization recommended and discussed with him today. Would first recommend diuresis and then consider coronary angiography with right heart catheterization later this week. He was noncommittal. We discussed the fact that if multi vessel CAD is playing a role, revascularization may allow for improvement and better quality of life. (3) Mitral regurgitation: Significant mitral regurgitation. This could be primary but also could be due to mitral annular dilation and also hypervolemia. Consider transesophageal echo or at least repeating transthoracic images after diuresis. (4) Pulmonary hypertension: Likely secondary to hypervolemia and pulmonary emboli may also be playing a role. Would repeat measurement after diuresis. If he is agreeable to cardiac catheterization, would recommend right heart catheterization as well. (5) Elevated troponin: Likely secondary to decompensated systolic CHF and pulmonary emboli, possibly with underlying ischemic heart disease. (6) Pulmonary embolism: Anticoagulation as per primary service. As cardiac catheterization may be performed at some point during this hospital stay, would consider heparin or low-molecular weight heparin while hospitalized prior to the procedure. (7) CAD (coronary artery disease), [place] coronary artery: Coronary artery calcifications on CT scan. Recommend aspirin 81 mg daily. Recommend high-intensity statin therapy. Check lipid profile. No beta-kunal for now but once diuresed somewhat, would consider beta-kunal at that point. No angina. (8) Tobacco abuse: Smoking cessation. Disposition: Highly complex medical issues. Continue telemetry to monitor her ventricular arrhythmia. Patient care discussed with Dr. Pelletier of the primary hospitalist service. Cardiology will continue to follow. It was stressed to him that there is increased mortality with his cardiac diagnosis and it was strongly recommended that he undergo diuresis and treatment as well as coronary angiography. He left AMA recently from another hospital with diagnosis of PE, without treatment. Thank you for allowing me to participate in the care of your patient. Please call for any other questions or concerns. Sincerely, Abhishek Horowitz M.D. History of Present Illness Reason for Consultation: CHF Requesting Physician: Dr. Pelletier Attending Physician: Niya Pelletier MD History of Present Illness Mr. Mckeon is a 48-year-old gentleman with recently diagnosed pulmonary emboli who presents to [facility] with shortness of breath and edema. He was in [facility] 4 days ago with shortness of breath and was diagnosed with bilateral pulmonary emboli. He was given 1 dose of Lovenox and then signed out against medical advice. He then presented here and was admitted on 04/07/2019 with worsening shortness of breath and bilateral lower extremity edema. He states that he does not follow with physicians and takes no medications. He carries no long-term diagnosis such as hypertension, dyslipidemia, or diabetes. He is a chronic smoker and has a family history of coronary artery disease but carries no such diagnosis himself. For the past 2 weeks or so he has increased lower extremity edema and increased shortness of breath. He admits that he has had edema on and off for several years but more recently things have worsened. Because of the symptoms he presented to [facility] as noted above before leaving against medical advice. He admits to orthopnea and has been sleeping much because of this. He also admits that he consumes foods high in sodium content. He denies any chest pain, syncope, near-syncope, palpitations, or bleeding such as melena, hematochezia, or hematuria. He denies fever, nausea, vomiting. Throughout our conversation, he mentioned many times that he needs to get home to take care of his mother. He lives with his mother who has dementia and he states that he is her caregiver. He has sisters who live locally in [place] as well. He states that he will have to try to find help for his mother. Review of systems: As above. Review of systems otherwise negative/unremar kable. Family history: He has 3 siblings. Two of his sisters have CAD and have had PCI. Social history: He smokes 2 pack per day for many years, at least 10. No significant alcohol. No drugs. He has not been . No children. He lives with his mother who has dementia. He is unaccompanied. He lives in [place]. Allergies Allergy/AdvReac Type Severity Reaction Status Date / Time cefaclor [From [facility]] Allergy Severe Hives Unverified 04/07/19 15:13 Penicillins Allergy Severe Rash Unverified 04/07/19 15:13 bee venom protein (honey bee) Allergy Intermediate Unknown Unverified 04/07/19 15:13 cat dander Allergy Intermediate itchy Unverified 04/07/19 15:13 watery eyes dust Allergy Intermediate itchy Uncoded 04/07/19 15:13 watery eyes Home Medications Home Medications Medication Instructions Recorded Confirmed Type No Known Home Medications 04/07/19 04/07/19 History Patient History Medical History No significant past medical history Social History Preferred Language: Burmese Communication Ability: Effective Beliefs That Will Affect Care: None Current Living Situation: Parent Other Information That Helps Us Care for You: No Feels Safe at Home: Yes Safety Concerns: Feels Safe At This Time Smoking Status: Heavy tobacco smoker Tobacco Type: cigarettes Do You Dip or Chew Tobacco: No Second Hand Exposure: No Tobacco Cessation Education Requested by Patient: No Hx Alcohol Use: No Hx Substance Use: No Physical Exam Physical Exam: Gen.: No acute distress. Alert and oriented. HEENT: Anicteric sclera. Neck: JVD to the mandible while sitting upright. No bruits. Normal carotid upstrokes bilaterally. Cardiac: PMI was prominent and mildly laterally displaced. No ventricular heave. Tachycardic but regular. Normal S1-S2. No murmurs, rubs, or gallops. Pulmonary: Bibasilar rales. Decreased breath sounds throughout. Abdomen: Soft, nontender, nondistended, with normoactive bowel sounds. No bruits noted. Extremities: 2+ radial pulses bilaterally. 2+ posterior tibialis pulses bilaterally. 3+ tense bilateral lower extremity edema nearly to the knees. No cyanosis. Psych: Affect appears appropriate. Results & Data Vital Signs (Past 12 Hours) Vital Signs Temp Pulse Pulse Resp BP Pulse Ox Pulse Ox 04/08/19 08:43 37.2 C 110 H 18 133/88 98 04/08/19 08:37 97 04/08/19 08:33 112 H 04/08/19 08:29 97 04/08/19 03:42 36.3 C L 102 H 21 141/99 H 97 04/08/19 00:00 115 H 118 H 20 132/96 99 Laboratory Results Laboratory Results - last 24 hr 04/07/19 04/07/19 04/07/19 14:48 14:48 14:48 WBC 11.64 H RBC 4.72 Hgb 14.3 POC Hgb Hct 42.2 POC Hct MCV 89.4 MCH 30.3 MCHC 33.9 RDW Std Deviation 46.7 H RDW Coeff of Alexa 14.2 Plt Count 273 MPV 9.8 Immature Gran % (Auto) 0.4 Neut % (Auto) 68.5 Lymph % (Auto) 16.8 [place] % (Auto) 10.8 Eos % (Auto) 3.0 Baso % (Auto) 0.5 Immature Gran # (Auto) 0.05 H Neut # (Auto) 7.96 H Lymph # (Auto) 1.96 [place] # (Auto) 1.26 H Eos # (Auto) 0.35 Baso # (Auto) 0.06 PT 10.9 INR 1.1 APTT 24.7 PTT Ratio 0.9 POC Sodium Sodium 139 POC Potassium Potassium 4.6 POC Chloride Chloride 104 Carbon Dioxide 30 POC Total CO2 Anion Gap 5.0 POC Anion Gap POC BUN BUN 21 H Creatinine 1.14 POC Creatinine Est Cr Clr Drug Dosing 82.7 Est GFR ( Amer) 88.3 Est GFR (Non-Af Amer) 76.2 BUN/Creatinine Ratio 18.3 Glucose 134 H POC Glucose (other) Calcium 9.1 POC Ioniz Calcium Nicola Total Bilirubin 0.4 AST 22 ALT 45 Alkaline Phosphatase 119 H Troponin I 0.046 H* Total Protein 6.8 Albumin 3.4 Globulin 3.4 Albumin/Globulin Ratio 1.0 Lipase 120 04/07/19 04/07/19 14:52 23:08 WBC RBC Hgb POC Hgb 14.3 Hct POC Hct 42 MCV MCH MCHC RDW Std Deviation RDW Coeff of Alexa Plt Count MPV Immature Gran % (Auto) Neut % (Auto) Lymph % (Auto) [place] % (Auto) Eos % (Auto) Baso % (Auto) Immature Gran # (Auto) Neut # (Auto) Lymph # (Auto) [place] # (Auto) Eos # (Auto) Baso # (Auto) PT INR APTT PTT Ratio POC Sodium 137 Sodium POC Potassium 4.5 Potassium POC Chloride 108 Chloride Carbon Dioxide POC Total CO2 27 Anion Gap POC Anion Gap 7.0 L POC BUN 21 H BUN Creatinine POC Creatinine 1.0 Est Cr Clr Drug Dosing Est GFR ( Amer) Est GFR (Non-Af Amer) BUN/Creatinine Ratio Glucose POC Glucose (other) 142 H Calcium POC Ioniz Calcium Nicola 1.14 Total Bilirubin AST ALT Alkaline Phosphatase Troponin I 0.053 H* Total Protein Albumin Globulin Albumin/Globulin Ratio Lipase Diagnostic Findings ECG personally reviewed: ECG 04/07/2019: Sinus tachycardia 122 bpm. Nonspecific T-wave abnormality. Telemetry personally reviewed: Sinus tachycardia. No ventricular arrhythmia. Echo personally reviewed from 04/08/2019: Moderately dilated LV with severely reduced systolic function. EF 15-20%. Global severe hypokinesis to akinesis. Mild LVH. Mildly reduced RV systolic function. Severe left atrial dilation. Moderate to severe MR with thickened mitral leaflets. Moderate TR. RVSP 53. 04/07/2019: Segmental pulmonary emboli and bilateral lower lobes. No evidence of right heart strain or definite pulmonary infarction. Mild subsegmental dependent bibasilar atelectasis with trace right pleural effusion. Cardiomegaly with coronary artery calcifications. Medications Administered Current Inpatient Medications Acetaminophen (Tylenol) 650 mg PO Q4H PRN PRN Reason: Pain or Fever Stop: 05/07/19 19:40 Last Admin: 04/08/19 00:43 Dose: 650 mg Documented by: Al Hydrox/Mg Hydrox/Simethicone (Maalox) 15 ml PO Q4H PRN PRN Reason: Dyspepsia Stop: 05/07/19 19:40 Aspirin (Ecotrin Ectab) 81 mg PO QAM JAYLEEN Stop: 05/08/19 10:59 Last Admin: 04/08/19 10:54 Dose: 81 mg Documented by: Atorvastatin Calcium (Lipitor) 80 mg PO HS [facility] Stop: 05/08/19 20:59 Heparin Sodium/Dextrose () 1 ea IV Q30M [facility]; Protocol Stop: 04/08/19 19:00 Furosemide 40 mg/ Syringe 4 mls @ 4 mls/min IV BID@0900,1800 [facility] Stop: 05/08/19 17:59 Lorazepam (Ativan) 0.5 mg in 1 mls @ 1 mls/min IV Q4H PRN PRN Reason: Anxiety Stop: 05/08/19 11:01 Ioversol (Optiray 320 125ml) 109 ml IV ONCE PRN PRN Reason: Interaction Checking Stop: 04/11/19 16:05 Last Admin: 04/07/19 16:07 Dose: 109 ml Documented by: Magnesium Hydroxide (Milk Of Magnesia) 30 ml PO Q12H PRN PRN Reason: Constipation Stop: 05/07/19 19:40 Miscellaneous (Remove Nicoderm Patch) 1 ea N/A HS [facility] Stop: 05/07/19 20:59 Last Admin: 04/07/19 22:32 Dose: Not Given Documented by: Nicotine (Nicoderm Cq) 21 mg TD QAM [facility] Stop: 05/08/19 10:59 Ondansetron HCl (Zofran) 4 mg IV Q6H PRN PRN Reason: Nausea Stop: 05/07/19 19:40 Polyethylene Glycol (Miralax Powder Packet) 17 gm PO DAILY PRN PRN Reason: Constipation Stop: 05/07/19 19:40 Zolpidem Tartrate (Ambien) 5 mg PO HS PRN PRN Reason: Sleep Stop: 05/07/19 19:40 (1) Pulmonary embolism Acute cor pulmonale presence: without acute cor pulmonale Chronicity: acute Pulmonary embolism type: unspecified Qualified Code(s): I26.99 - Other pulmonary embolism without acute cor pulmonale
[2019-04-08] MEDS: NICOTINE 21 MG/24 HR TDSY TD SCH (12:15)
[2019-04-08] MEDS ORDERED: Heparin IV Standard *NO* Bolus IV SCH (17:00)
[2019-04-08] MEDS: Heparin Adult STANDARD Wt-Based Dextrose 5% 25,000 units/500 mL IV SCH (17:04)
[2019-04-08] MEDS: FUROSEMIDE 40 MG in SYRINGE 0 ML IV SCH (17:32)
[2019-04-08] MEDS: ATORVASTATIN 40 MG TAB PO SCH (21:52)
[2019-04-08 23:20] LABS: Basophils # (auto) 0.07 K/uL (0-0.2); Basophils % (auto) 0.5 %; Eosinophils # (auto) 0.49 K/uL (0-0.5); Eosinophils % (auto) 3.8 %; Hematocrit (blood only) 41.9 % (42-52); Immature Granulocytes # (auto) 0.05 K/uL (0.00-0.02); Immature Granulocytes % (auto) 0.4 %; Lymphocytes # (auto) 2.19 K/uL (1.2-3.4); Lymphocytes % (auto) 16.8 %; Mean Corpuscular Hgb Conc 33.4 g/dL (32-36); Mean Corpuscular Volume 89.1 fL (80-100); Mean Platelet Volume 10.1 fL (7.4-10.4); Monocytes # (auto) 1.25 K/uL (0.11-0.59); Monocytes % (auto) 9.6 %; Neutrophils # (auto) 9.01 K/uL (1.4-6.5); Neutrophils % (auto) 68.9 %; Platelet Count 239 K/uL (130-400); RDW Coefficient of Variation 14.1 % (11.5-14.5); RDW Standard Deviation 46.3 fL (36.4-46.3); White Blood Count 13.06 K/uL (4.8-10.8)
[2019-04-08 23:31] LABS: Partial Thromboplastin Ratio 1.4; Partial Thromboplastin Time 38.2 Seconds (21.0-31.0)
[2019-04-08 23:58] LABS: BUN Creatinine Ratio 19.4 (10-20); Calcium 8.4 mg/dl (8.5-10.1); Creatinine Clr Calc Pharmacy 81.1 ml/min; Est GFR (Non-African American) 71.6; Magnesium 1.9 mg/dl (1.8-2.4); Potassium 3.5 mmol/L (3.5-5.1)
[2019-04-09] MEDS ORDERED: HEPARIN IV BOLUS 6,000 UNITS in SYRINGE 0 ML IV ONE (00:15)
[2019-04-09 06:27] LABS: Estimated Average Glucose 128 mg/dl; Hemoglobin A1C 6.1 % (4.5-5.6)
[2019-04-09] MEDS: Heparin Adult STANDARD Wt-Based Dextrose 5% 25,000 units/500 mL IV SCH ×2 (06:34→21:54)
[2019-04-09 07:02] LABS: Partial Thromboplastin Ratio 2.6
[2019-04-09 07:15] LABS: Partial Thromboplastin Time 71.5 Seconds (21.0-31.0)
[2019-04-09 07:16] LABS: BUN Creatinine Ratio 16.4 (10-20); Calcium 8.7 mg/dl (8.5-10.1); Creatinine Clr Calc Pharmacy 95.2 ml/min; Est GFR (African American) 103.4; Est GFR (Non-African American) 89.2
--- NOTE | 2019-04-09 08:35 | Hospitalist Progress Note ---
Date of Service April 09, 2019 Assessment & Plan (1) Pulmonary embolism: This pt is a 48 y/o male who denies a significant medical history, although he does smoke 2 packs of cigarettes daily and has not been to an MD in over 10 years. He presented to [facility] with dyspnea and LE edema. He was diagnosed with BL PEs. He states that LE dopplers were negative. He then proceeded to leave [place] after receiving a dose of SQ Lovenox. He presents here 2 days later with persistent symptoms. He denies CP and did not display hypoxia, however, he was considerably tachycardic at the time of evaluation. A CTA was repeated and demonstrated segmental pulmonary emboli of the bilateral lo wer lobes without evidence of right heart strain or definite pulmonary infarction. Cardiomegaly with coronary arterial calcifications is also seen. He states his edema has been present and progressive for 2 weeks. Initial labs were notable for an elevated troponin. An EKG did not show a strain pattern. Sinus tach and LVH were apparent. BL PE - no known precipitating factors, but now with known severely reduced LV function, could have caused a low flow state and venous congestion in legs leading to DVTs. Reportedly, Dopplers LEs at [place] were negative, but may have moved all clot to the lungs. No evidence of Pulm malignancy on CT chest. Not requiring O2 Has some mild RV dysfunction on ECHO but this is likely more from left sided heart failure -Placed on heparin gtt and eventually to Xarelto upon discharge (after cardiac cath) for at least 6 months. -A malignancy workup would make sense considering his family history and heavy smoking. (2) Cardiomyopathy: LVEF 15-20% on ECHO With coronary artery calcifications seen on CT chest and heavy smoking history, likely ischemic in nature -plan for cardiac cath once tuned up from a CHF perspective-perhaps in the next 1-2 days -will need ongoing close f/u with Cardio after discharge (3) Acute systolic CHF (congestive heart failure): New, Severe LV dysfunction as above, possibly ischemic -diurese with IV lasix 40mg bid -follow BMP, Mg++ and replace lytes as needed -daily weights, strict I/Os, low Na+ diet, fluid restrict -eventually will need to add on beta kunal, ACEi -needs ischemic eval as above, cardiac cath likely 04/10 (4) CAD (coronary artery disease), [place] coronary artery: Suspected, due to coronary artery calcifications seen on chest CT, CHF, and +troponin Secondary to smoking, +FH -start ASA 81mg daily -start atorvastatin 80mg daily -metoprolol succinate and entresto -check lipid panel, HgbA1C (5) Elevated troponin: mildly elevated at 0.046/0.053 Secondary to strain from CHF in setting of likely underlying CAD -ECG with nonspecific ST-T changes -plan for cardiac cath as above (6) Pulmonary hypertension: Moderate, as seen on ECHO here Could be secondary to Pulm disease or PEs or from hypervolemia -diurese (7) Mitral regurgitation: Mod-severe seen on ECHO here -secondary to LV dysfunction and hypervolemia? Or the cause of LV dysfunction i.e. primary MR -Cardio suggests either LOLITA or repeating TTE after diuresis to reassess (8) Sinus tachycardia: secondary to severely reduced LVEF, compensatory -not as likely to be from PEs -monitor on tele metoproolol succinate (9) Situational anxiety: worsening anxiety over many months with staying at home all the time, taking care fo declining mother -denies depressive symptoms, denies SI or HI Also with severe phobia of needles -will try to minimize blood draws as much as possible -order IV ativan prn anxiety -consider adding SSRI such as Zoloft prior to discharge -he declines Psychiatric consultation (10) Tobacco abuse: Smokes 2 PPD - Nicotine patch 21mg Prophylaxis--> heparin gtt Subjective pt has persistent leg swelling, no chest pain and much apprehension for the upcoming LHC for tomorrow. Pt has been having medication adjusted by cardiology for his acute systolic heart failure. Review of Systems Review of Systems: ROS: well nourished well developed. No double vision blurry vision No problems with speech or swallowing No palpitations, chest pain or pressure lower extremity swelling improving No Wheezing some dyspnea on exertion No abdominal pain nausea vomiting diarrhea changes in appetite or weight No burning urine urine frequency or changes in color No focal joint pain or muscle pain No skin rashes or oral lesions No unusual bruising or bleeding No focused back pain or numbness or loss of strength No changes in memory or confusion Physical Exam Physical Exam: The patient appeared well nourished and normally developed. Vital signs as documented. Head exam is unremarkable. normocephalic, atraumatic Neck is with 3 cm jugular venous distension, thyromegaly, or lymphademopathy Lungs are diminished at the bases, rales also Cardiac exam reveals Rhythm is regular. mild dale Abdominal exam reveals normal bowel sounds, no masses, no organomegaly Extremities are moderately edematous, both pedal pulses are present Neurologic exam is A&Ox3, no focal deficits, strength is equal bilateral Psychologically seems anxious Skin is warm Dry Results & Data Vital Signs (Past 12 Hours) Vital Signs Temp Pulse Resp BP BP Pulse Ox 04/09/19 07:07 36.7 C 112 H 19 129/92 98 04/09/19 03:28 36.8 C 111 H 16 128/86 98 04/09/19 00:00 37.2 C 112 H 18 126/91 98 PG Care Time/CCT Total # of Minutes Spent Total Time Spent with Patient: Total time spent is greater than 50% in coordination of care (as documented) at patient's floor/unit and/or counseling patient: (1) Pulmonary embolism Acute cor pulmonale presence: without acute cor pulmonale Chronicity: acute Pulmonary embolism type: unspecified Qualified Code(s): I26.99 - Other pulmonary embolism without acute cor pulmonale
--- NOTE | 2019-04-09 09:21 | Cardiology Progress Note ---
Date of Service April 09, 2019 Assessment & Plan (1) Acute systolic CHF (congestive heart failure): He remains hypervolemic but has improved. He diuresed 3.7 L yesterday. Continue current dose of diuretics, 40 mg of Lasix IV b.i.d.. Will initiate metoprolol succinate today 25 mg once daily. He received 1 dose of lisinopril upon presentation. Will initiate Entresto low-dose tomorrow. Continue low- sodium diet, strict I&Os, daily weights. He has improved from a symptomatic standpoint as well. (2) Cardiomyopathy: Etiology not certain but given risk factors and coronary artery calcifications, ischemic heart disease is a possibility. Initiating beta- kunal today. Start Entresto tomorrow. We once again discussed cardiac catheterization, including risks and benefits. He is agreeable to undergo cardiac catheterization and will also include right heart catheterization. Will tentatively schedule for tomorrow so that we can further diurese and initiate other medical therapy today. He was made aware that CT surgery is not available at this facility. He stated that he would not undergo bypass surgery as his goal is to get home soon to help take care of his mother. He became tearful when discussing this and he said that bypass surgery would not be an option for him because of his mother. Continue to monitor for ventricular arrhythmia. (3) Mitral regurgitation: Significant mitral regurgitation. This could be primary but also could be due to mitral annular dilation and also hypervolemia. Hopefully this improves with diuresis. Will monitor. He states that he will not consent for surgery at this time as noted above. (4) Pulmonary hypertension: Likely secondary to hypervolemia and pulmonary emboli may also be playing a role. Would repeat measurement after diuresis. Right heart catheterization as above. (5) Elevated troponin: Likely secondary to decompensated systolic CHF and pulmonary emboli, possibly with underlying ischemic heart disease. (6) Pulmonary embolism: Anticoagulation as per primary service. On heparin drip. Continue (7) CAD (coronary artery disease), [place] coronary artery: Coronary artery calcifications on CT scan. Continue aspirin 81 mg daily. Continue high-intensity statin therapy. Beta-kunal initiated today. No angina. (8) Tobacco abuse: Smoking cessation. Disposition: Continue plan as noted above. We discussed the fact that he will likely require several more days of intravenous diuretic therapy. It is not clear how long he will be willing to stay hospitalized. On discharge, he would like to follow-up in [place] with Dr. Saldivar due to travel distance. At this time however he is willing to follow-up. Heart failure program strongly recommended and he is agreeable. Will ask Carolyn Olga to see him today. Subjective His breathing is much improved. He admits that he does not remember what it is like to feel normal. He denies chest pain, syncope, near-syncope, palpitations, or bleeding. Edema has improved. He slept better last night as his breathing improved. He still has some shortness of breath. Review of systems: As above. Physical Exam Physical Exam: Gen.: No acute distress. Alert and oriented. HEENT: Anicteric sclera. Neck: JVD to the mandible while sitting upright. Cardiac: Tachycardic but regular. Normal S1-S2. No murmurs, rubs, or gallops. Pulmonary: Clear to auscultation bilaterally. Decreased breath sounds throughout. Abdomen: Soft, nontender, nondistended, with normoactive bowel sounds. No bruits noted. Extremities: 2+ right radial pulse; Liborio's test okay. 2+ bilateral lower extremity edema. No cyanosis. Psych: Affect appears appropriate. Results & Data Vital Signs (Past 12 Hours) Vital Signs Temp Pulse Resp BP BP Pulse Ox 04/09/19 07:07 36.7 C 112 H 19 129/92 98 04/09/19 03:28 36.8 C 111 H 16 128/86 98 04/09/19 00:00 37.2 C 112 H 18 126/91 98 Intake & Output 04/07/19 04/08/19 04/09/19 04/10/19 06:59 06:59 06:59 06:59 Intake Total 1900 / 1900 1856.800 / 1856.800 24.933 / .933 Output Total 300 / 300 5525 / 5525 Balance 1600 / 1600 -3668.200 / -3668.200 24.933 / .933 Weight 79.5 kg 73.7 kg Laboratory Results Laboratory Results - last 24 hr 04/08/19 04/08/19 04/08/19 22:57 22:57 22:57 WBC 13.06 H RBC 4.70 Hgb 14.0 Hct 41.9 L MCV 89.1 MCH 29.8 MCHC 33.4 RDW Std Deviation 46.3 RDW Coeff of Alexa 14.1 Plt Count 239 MPV 10.1 Immature Gran % (Auto) 0.4 Neut % (Auto) 68.9 Lymph % (Auto) 16.8 [place] % (Auto) 9.6 Eos % (Auto) 3.8 Baso % (Auto) 0.5 Immature Gran # (Auto) 0.05 H Neut # (Auto) 9.01 H Lymph # (Auto) 2.19 [place] # (Auto) 1.25 H Eos # (Auto) 0.49 Baso # (Auto) 0.07 APTT 38.2 H PTT Ratio 1.4 Sodium 139 Potassium 3.5 D Chloride 101 Carbon Dioxide 31 Anion Gap 7.0 BUN 23 H Creatinine 1.20 Est Cr Clr Drug Dosing 81.1 Est GFR ( Amer) 83.0 Est GFR (Non-Af Amer) 71.6 BUN/Creatinine Ratio 19.4 Glucose 129 H Estimat Average Glucose Hemoglobin A1c Calcium 8.4 L Magnesium 1.9 Triglycerides Cholesterol LDL Cholesterol, Calc VLDL Cholesterol, Calc HDL Cholesterol Cholesterol/HDL Ratio TSH 4.240 04/08/19 04/09/19 04/09/19 22:57 06:32 06:32 WBC RBC Hgb Hct MCV MCH MCHC RDW Std Deviation RDW Coeff of Alexa Plt Count MPV Immature Gran % (Auto) Neut % (Auto) Lymph % (Auto) [place] % (Auto) Eos % (Auto) Baso % (Auto) Immature Gran # (Auto) Neut # (Auto) Lymph # (Auto) [place] # (Auto) Eos # (Auto) Baso # (Auto) APTT 71.5 H* PTT Ratio 2.6 Sodium 141 Potassium 4.0 Chloride 104 Carbon Dioxide 30 Anion Gap 7.0 BUN 16 Creatinine 1.00 Est Cr Clr Drug Dosing 95.2 Est GFR ( Amer) 103.4 Est GFR (Non-Af Amer) 89.2 BUN/Creatinine Ratio 16.4 Glucose 101 H Estimat Average Glucose 128 Hemoglobin A1c 6.1 H Calcium 8.7 Magnesium Triglycerides 117 Cholesterol 170 LDL Cholesterol, Calc 110 VLDL Cholesterol, Calc 23 HDL Cholesterol 37 Cholesterol/HDL Ratio 5 TSH Diagnostic Findings Telemetry personally reviewed: Sinus tachycardia. No ventricular arrhythmia. Medications Administered Current Inpatient Medications Acetaminophen (Tylenol) 650 mg PO Q4H PRN PRN Reason: Pain or Fever Stop: 05/07/19 19:40 Last Admin: 04/08/19 22:40 Dose: 650 mg Documented by: Al Hydrox/Mg Hydrox/Simethicone (Maalox) 15 ml PO Q4H PRN PRN Reason: Dyspepsia Stop: 05/07/19 19:40 Aspir[facility]ab) [facility] Stop: 05/08/19 10:59 Last Admin: 04/08/19 10:54 Dose: 81 mg Documented by: Atorvastatin Calcium (Lipitor) 80 mg PO [facility] Stop: 05/08/19 20:59 Last Admin: 04/08/19 21:52 Dose: 80 mg Documented by: Furosemide 40 mg/ Syringe 4 mls @ 4 mls/min IV BID@0900,1800 [facility] Stop: 05/08/19 17:59 Last Admin: 04/08/19 17:32 Dose: 4 mls/min Documented by: Lorazepam (Ativan) 0.5 mg in 1 mls @ 1 mls/min IV Q4H PRN PRN Reason: Anxiety Stop: 05/08/19 11:01 Heparin Sodium/Dextrose (Heparin Sodium/Dextrose) 25,000 units in 500 mls @ 32 mls/hr IV .[id number] [facility]; Protocol Stop: 05/08/19 16:59 Last Titration: 04/09/19 07:18 Dose: 1,600 units/hr, 32 mls/hr Documented by: Ioversol (Optiray 320 125ml) 109 ml IV ONCE PRN PRN Reason: Interaction Checking Stop: 04/11/19 16:05 Last Admin: 04/07/19 16:07 Dose: 109 ml Documented by: Magnesium Hydroxide (Milk Of Magnesia) 30 ml PO Q12H PRN PRN Reason: Constipation Stop: 05/07/19 19:40 Metoprolol Succinate (Toprol Xl) 25 mg PO [facility] Stop: 05/09/19 09:14 Miscellaneous (Remove Nicoderm Patch) 1 ea N/A [facility] Stop: 05/07/19 20:59 Last Admin: 04/08/19 21:54 Dose: Not Given Documented by: Nicotine (Nicoderm Cq) [facility] Stop: 05/08/19 10:59 Last Admin: 04/08/19 12:15 Dose: 21 mg Documented by: Ondansetron HCl (Zofran) 4 mg IV Q6H PRN PRN Reason: Nausea Stop: 05/07/19 19:40 Polyethylene Glycol (Miralax Powder Packet) 17 gm PO DAILY PRN PRN Reason: Constipation Stop: 05/07/19 19:40 Sacubitril/Valsartan (Entresto 24/26mg) 1 tab PO BID JAYLEEN Stop: 05/10/19 08:59 Zolpidem Tartrate (Ambien) 5 mg PO HS PRN PRN Reason: Sleep Stop: 05/07/19 19:40 (1) Pulmonary embolism Acute cor pulmonale presence: without acute cor pulmonale Chronicity: acute Pulmonary embolism type: unspecified Qualified Code(s): I26.99 - Other pulmonary embolism without acute cor pulmonale
[2019-04-09] MEDS: METOPROLOL SUCC 25MG EXT REL TAB PO SCH (10:07)
[2019-04-09] MEDS: FUROSEMIDE 40 MG in SYRINGE 0 ML IV SCH ×2 (10:07→19:18)
[2019-04-09] MEDS: NICOTINE 21 MG/24 HR TDSY TD SCH (10:07)
[2019-04-09] MEDS: ASPIRIN 81 MG ECTAB PO SCH (10:07)
[2019-04-09 14:44] LABS: Partial Thromboplastin Ratio 1.8
[2019-04-09 15:15] LABS: Partial Thromboplastin Time 47.6 Seconds (21.0-31.0)
--- NOTE | 2019-04-09 16:37 | Heart Failure Progress Note ---
Date of Service April 09, 2019 Assessment & Plan (1) Acute systolic CHF (congestive heart failure): He remains hypervolemic but is diuresing well on his current diuretic. Continue Lasix 40 mg IV BID. Continue daily standing weights, strict I&Os, low- sodium diet, and fluid restriction. He admittedly he consumes a high sodium diet at home. He drinks copious amounts of Mountain Dew on a daily basis. We discussed this briefly today but he will likely require ongoing education as an outpatient. His sister does most of the cooking, but he does the grocery shopping. (2) Cardiomyopathy: Etiology is unknown at this point. He is scheduled for cardiac catheterization tomorrow. He was initiated on metoprolol 25 mg daily today. Low-dose Entresto was ordered to start tomorrow. He did state that he would be willing to consider transfer to a tertiary center should he need bypass surgery which is different from his opinion earlier today. He is also willing to cut down on his smoking, but is not interested in quitting at this time. Patient will require close outpatient follow-up as he has many risk factors and there are concerns for noncompliance. At this point he seems willing to participate in the program and maintain his followups. Will follow during his hospital and arrange for follow-up within 7 days of discharge. For routine cardiology care he prefers to see Dr. Saldivar in our [place] location. Subjective Mr. Mckeon is a 48-year-old gentleman with recently diagnosed acute systolic congestive heart failure, new onset cardiomyopathy, mitral regurgitation, pulmonary hypertension, bilateral pulmonary embolism, and coronary artery disease with calcifications noted on CT scan. He denies history of hypertension dyslipidemia or diabetes. He does not follow with a physician and takes no medications. 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 Horowitz. He was recently evaluated at [facility] and was diagnosed with bilateral PEs. He later signed out AMA. He then presented to [facility] with increasing shortness of breath and worsening lower extremity edema. Echocardiogram demonstrates a moderately dilated left ventricle with severely reduced systolic function, EF is 15-20%. Global hypokinesis to akinesis noted. There is also moderate tricuspid regurgitation and moderate pulmonary hypertension. He was significantly hypervolemic on his exam and was started on Lasix 40 mg IV twice daily with a goal of-1 to 2 L per day. He is currently at -3.4L for the admission. He was initiated on metoprolol and is scheduled for cardiac catheterization tomorrow. He has been referred to the heart failure program by Dr. Horowitz. He is feeling better today and has less shortness of breath. He reports significant urine output today. He has 2 friends visiting at the time of my evaluation. He mentions several times about how being home to take care of his mother is his priority. Results & Data Vital Signs (Past 12 Hours) Vital Signs Temp Pulse Resp BP BP Pulse Ox 04/09/19 15:00 36.6 C 111 H 19 126/91 96 04/09/19 10:50 36.8 C 116 H 19 124/86 98 04/09/19 07:07 36.7 C 112 H 19 129/92 98
[2019-04-09] MEDS: ATORVASTATIN 40 MG TAB PO SCH (21:56)
[2019-04-10 07:03] LABS: Partial Thromboplastin Ratio 1.9
[2019-04-10 07:06] LABS: Partial Thromboplastin Time 51.8 Seconds (21.0-31.0)
[2019-04-10] MEDS: ASPIRIN 81 MG ECTAB PO SCH (08:06)
[2019-04-10] MEDS: SACUBITRIL-VALSARTAN 24-26 MG TAB PO SCH ×2 (08:06→20:21)
[2019-04-10] MEDS: METOPROLOL SUCC 25MG EXT REL TAB PO SCH (08:06)
[2019-04-10] MEDS: NICOTINE 21 MG/24 HR TDSY TD SCH (08:06)
[2019-04-10 08:38] LABS: BUN Creatinine Ratio 15.4 (10-20); Calcium 9.2 mg/dl (8.5-10.1); Creatinine Clr Calc Pharmacy 88.3 ml/min; Est GFR (African American) 97.5; Est GFR (Non-African American) 84.1; Potassium 4.2 mmol/L (3.5-5.1)
[2019-04-10] MEDS: FUROSEMIDE 40 MG in SYRINGE 0 ML IV SCH ×2 (08:48→17:18)
--- NOTE | 2019-04-10 09:32 | Cardiology Progress Note ---
Date of Service April 10, 2019 Assessment & Plan (1) Acute systolic CHF (congestive heart failure): He remains hypervolemic but is improving daily with significant diuresis. His net negative fluid balance for this hospital stay is approximately 5 L. He diuresed a net negative 3.2 L yesterday. Continue Lasix 40 mg IV BID. Continue daily standing weights, strict I&Os, low-sodium diet, and fluid restriction. Continue metoprolol succinate 25 mg daily. Entresto starting today. Today (2) Cardiomyopathy: Etiology is unknown at this point. He is scheduled for cardiac catheterization today. Continue metoprolol succinate. Initiate Entresto today. Titrate medications over time. Hopefully LV systolic function improved over time. (3) Mitral regurgitation: Hopefully this improves with diuresis. Will re-evaluate in the future. (4) Pulmonary hypertension: Likely due to hypervolemia but also was diagnosed with pulmonary embolism. Right heart catheterization today. (5) Pulmonary embolism: On anticoagulation as per primary service. (6) CAD (coronary artery disease), [place] coronary artery: Coronary calcifications noted on CT scan imaging. Cardiac catheterization today. Continue aspirin 81 mg daily, high-intensity statin therapy, and beta- kunal. No angina. (7) Tobacco abuse: Smoking cessation has been strongly recommended and discussed. Disposition: Cardiology will continue to follow. Cardiac catheterization t eliecer. Continue medical therapy as noted. Subjective Breathing continues to improve. He was able to lay flat in bed without orthopnea. He denies chest pain, syncope, near-syncope, palpitations. He did not re-evaluate his swelling but overall feels much better. He is leaning against CABG if coronary angiography suggests that it is a reasonable approach but cardiac catheterization has not yet been completed, pending later today. He states that if things are "bad enough" he may consider CABG. His biggest concern remains getting home to help take care of his mother and he states that she is "worth dying for." Review of systems: As above. Physical Exam Physical Exam: Gen.: No acute distress. Alert and oriented. HEENT: Anicteric sclera. Neck: Mild JVD. Cardiac: Regular. Normal S1-S2. No murmurs, rubs, or gallops. Pulmonary: Clear to auscultation bilaterally. Decreased breath sounds throughout. Abdomen: Soft, nontender, nondistended, with normoactive bowel sounds. No bruits noted. Extremities: 1+ bilateral lower extremity edema. No cyanosis. Psych: Affect appears appropriate. Results & Data Vital Signs (Past 12 Hours) Vital Signs Temp Pulse Pulse Resp BP BP Pulse Ox 04/10/19 07:06 36.7 C 106 H 24 112/79 99 04/10/19 02:40 36.2 C L 94 H 20 110/79 99 04/10/19 01:23 114 H 04/09/19 23:13 36.7 C 102 H 20 113/78 98 Intake & Output 04/08/19 04/09/19 04/10/19 04/11/19 06:59 06:59 06:59 06:59 Intake Total 1900 / 1900 1856.800 / 1856.800 972.133 / 972.133 292.267 / 292.267 Output Total 300 / 300 5525 / 5525 4175 / 4175 Balance 1600 / 1600 -3668.200 / -3668.200 -3202.867 / -3202.867 292.267 / 292.267 Weight 79.5 kg 73.7 kg 71.8 kg (1) Pulmonary embolism Acute cor pulmonale presence: without acute cor pulmonale Chronicity: acute Pulmonary embolism type: unspecified Qualified Code(s): I26.99 - Other pulmonary embolism without acute cor pulmonale
[2019-04-10] MEDS ORDERED: MIDAZOLAM HCL 1 MG/ML 2ML VIAL ONE ×3 (10:02→11:33)
[2019-04-10] MEDS ORDERED: HEPARIN (PORCINE) 1000 UNIT/ML 10 ML (CATH LAB USE ONLY) ONE (10:03)
[2019-04-10] MEDS ORDERED: NiCARDipine HCL INJ 2.5 MG/ML 10 ML AMP ONE (10:03)
[2019-04-10] MEDS ORDERED: fentaNYL citrate 100 MCG/2 ML VIAL ONE ×2 (10:03→11:33)
[2019-04-10] MEDS ORDERED: NITROGLYCERIN/D5W 100MCG/ML 20ML SYR ONE (10:03)
--- NOTE | 2019-04-10 11:20 | Pre Anesthesia Assessment ---
Date of Service April 10, 2019 Pre Sedation Assessment Vital Signs Temp Pulse Pulse Pulse Resp BP BP 04/10/19 07:06 36.7 C 106 H 24 112/79 04/10/19 02:40 36.2 C L 94 H 20 110/79 04/10/19 01:23 114 H 04/09/19 23:13 36.7 C 102 H 20 113/78 04/09/19 15:00 36.6 C 111 H 19 126/91 Pulse Ox 04/10/19 07:06 99 04/10/19 02:40 99 04/10/19 01:23 04/09/19 23:13 98 04/09/19 15:00 96 Cardiovascular + regular rate Respiratory normal respiratory effort, lungs clear to auscultation Pre-Sedation Airway Assessment Smoking Status: Heavy tobacco smoker Mallampati Class: III ASA: ASA3 NPO Status Date of Last Intake of Fluids: 04/09/19 Time of Last Intake of Fluids: 21:00 Date of Last Intake of Solid Food: 04/09/19 Time of Last Intake of Solid Foods: 21:00 Notes The planned sedation has been discussed with the patient. Informed Consent was obtained. I have identified the patient, determined the appropriateness of sedation and have assessed the patient immediately prior to the procedure. All medicine(s) and interventions are by my order.
--- NOTE | 2019-04-10 12:07 | Post Operative Brief Note ---
Cardiology Brief Post Op Date of Surgery April 10, 2019 Pre & Post Diagnosis Operation Date: 04/10/19 11:30 <No data on this case meets the specified criteria> Procedure Right and left heart catheterization with coronary angiography. Database Security Expert Arnol Horowitz MD Cell Reliner Loy Estimated Blood Loss 30 Findings See Below Severe CAD involving large D1 but otherwise nonobstructive CAD. Normal pulmonary pressure. Full report to follow. Complications none Disposition Disposition: PCU
[2019-04-10 12:12] LABS: iSTAT Arterial Blood Gas HCO3 26 meg/L (19-24); iSTAT Arterial Blood Gas pCO2 40 mmHg (35-46); iSTAT Arterial Blood Gas pH 7.42 (7.35-7.45); iSTAT Carbon Dioxide 28 mEq/l (24-31)
--- NOTE | 2019-04-10 12:15 | Cardiac Catheterization ---
Cardiac Cath Procedure Full Procedure Date April 10, 2019 Pre-Procedure Diagnosis Pre-Procedure Diagnosis: Valvular Disease, CHF and Cardiomyopathy AUC Score AUC Score: 7 Post-Procedure Diagnosis Post-Procedure Diagnosis: Severe CAD Procedure(s) Performed Procedure(s) Performed: Coronary Angiography, Left Heart Cath and Right Heart Cath Lan Engineer Arnol Horowitz MD Estimated Blood Loss Estimated Blood Loss: < 30 ml Medication(s) Medication(s): Fentanyl, Heparin, Lidocaine 1%, Nicardipine and Versed Summary of Findings Coronary angiography: 1. Left main coronary artery: The LMCA is without significant CAD. 2. Left anterior descending: The LAD is a large caliber vessel that wraps around the apex. Proximal LAD 10% luminal irregularity. Early distal LAD 30% stenosis. There is a very large caliber first diagonal with lateral branching. Proximal large D1 70-80% stenosis. 3. Circumflex: The circumflex is a large caliber vessel that gives rise to a very large caliber high OM1. Very small caliber OM2. Large caliber OM3 and small caliber OM 4. No significant CAD within the circumflex system. 4. Right coronary artery: The RCA is large and dominant. Proximal RCA 30-40%. Mid RCA 20%. PDA and PL without significant CAD. Left heart catheterization: 1. Left ventriculography was not performed. 2. Elevated LVEDP; 23mmHg. 3. No aortic stenosis. Peak to peak gradient across the aortic valve was 0mmHg. Right heart catheterization: 1. Normal pulmonary capillary wedge pressure. V-wave 15 with a mean of 12mmHg. 2. Normal PA pressure. PA pressure 22/10 with a mean of 11mmHg. 3. RV pressure 20/0 with RV EDP of 1mmHg. 4. Normal right atrial pressure. A-wave 8; V-wave 8; mean 7mmHg. 5. Cardiac output via thermodilution was 3.9 L/min, with a cardiac index of 2.1 L/min/m2. Sedation start time: 11:20 a.m. Sedation end time: 11:55 a.m. Procedural details: 1. Right heart catheterization was performed via the right brachiocephalic vein without known complication. 2. Left heart catheterization was performed via the right radial artery with 6 [place] JL 3.5 and JR4 diagnostic catheters. Impression: 1. Severe CAD involving large D1 branch, otherwise nonobstructive CAD. 2. Nonischemic cardiomyopathy. 3. Normal PA pressure. 4. Moderately elevated LVEDP. 5. Normal pulmonary capillary wedge pressure. 6. Reduced cardiac output via thermodilution. 7. No aortic stenosis. Plan: 1. Continue to titrate medications to optimize medical therapy for nonischemic cardiomyopathy. 2. Reinvestigate mitral regurgitation and LV systolic function after volume status is optimized. 3. If LV systolic function does not improve significantly after optimal medical therapy, consider ICD. 4. Medically manage asymptomatic severe diagonal disease. Hemodynamics Rest Ao:: 88/71 Final Ao: 105/81 LV: 105// Recommendations Recommendations: Medical Therapy and/or Counseling Specimens Specimens: None Radiation Exposure (mGy) 808 mGy. Fluoro time 3.4 min. 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 Cardiac Status Clinical evaluation leading to the procedure CAD Presenation: No Sxs, No angina Anginal Classification: No Symptoms Heart Failure: NYHA Class: CCS IV Cardiogenic Shock within 24 Hours: No Cardiac Arrest within 24 Hours: No Imaging Studies Past 6 Months: Yes Stress Studies Past 6 Months: No Standard Exercise Test: No Stress Echocardiogram: No Stress Testing w/SPECT MPI: No Cardiac CTA: No Coronary Anatomy Dominant: Right Left Main (% Stenosis): Normal LAD (% Stenosis): Proximal (10%) and Distal (30%) D1 (% Stenosis): Proximal (70-80%) D2 (% Stenosis): Normal D3 (% Stenosis): Normal Circumflex (% Stenosis): Normal OM1 (% Stenosis): Normal OM2 (% Stenosis): Normal OM3 (% Stenosis): Normal RCA (% Stenosis): Proximal (30-40%) and Mid (20%) R PDA (% Stenosis): Normal R PL1 (% Stenosis): Normal Left Ventricular Angiography EF (%): n/a Diagnostic Physicians Name: Arnol Horowitz MD Status: Elective Closure Device Percutaneous Entry Location: Radial Closure Device: Radial Band Recommendations: Medical Therapy and/or Counseling
[2019-04-10] MEDS: Heparin Adult STANDARD Wt-Based Dextrose 5% 25,000 units/500 mL IV SCH (14:00)
--- NOTE | 2019-04-10 14:03 | Hospitalist Progress Note ---
Date of Service April 10, 2019 Assessment & Plan (1) Pulmonary embolism: This pt is a 48 y/o male who denies a significant medical history, although he does smoke 2 packs of cigarettes daily and has not been to an MD in over 10 years. He presented to [facility] with dyspnea and LE edema. He was diagnosed with BL PEs. He states that LE dopplers were negative. He then proceeded to leave [place] after receiving a dose of SQ Lovenox. He presents here 2 days later with persistent symptoms. He denies CP and did not display hypoxia, however, he was considerably tachycardic at the time of evaluation. A CTA was repeated and demonstrated segmental pulmonary emboli of the bilateral lo wer lobes without evidence of right heart strain or definite pulmonary infarction. Cardiomegaly with coronary arterial calcifications is also seen. He states his edema has been present and progressive for 2 weeks. Initial labs were notable for an elevated troponin. An EKG did not show a strain pattern. Sinus tach and LVH were apparent. BL PE - no known precipitating factors, but now with known severely reduced LV function, could have caused a low flow state and venous congestion in legs leading to DVTs. Reportedly, Dopplers LEs at [place] were negative, but may have moved all clot to the lungs. No evidence of Pulm malignancy on CT chest. Not requiring O2 Has some mild RV dysfunction on ECHO but this is likely more from left sided heart failure -Post cardiac catheterization patient has been resumed on heparin gtt and eventually to Eliquis upon discharge, however needs prior authorization, for at least 6 months. (2) Cardiomyopathy: LVEF 15-20% on ECHO nonocclusive coronary disease seen on cardiac catheterization repeat echocardiogram is ordered by cardiology Patient will have heart failure clinic follow-up after discharge (3) Acute systolic CHF (congestive heart failure): New, Severe LV dysfunction as above, Continues with IV lasix transition oral Lasix when able Patient placed on Entresto plus metoprolol (4) CAD (coronary artery disease), [place] coronary artery: Suspected, due to coronary artery calcifications seen on chest CT, CHF, and +troponin Secondary to smoking, +FH -start ASA 81mg daily -start atorvastatin 80mg daily -metoprolol succinate and entresto -check lipid panel, HgbA1C (5) Elevated troponin: mildly elevated at 0.046/0.053 Troponin elevation is demand ischemia as he is nonocclusive coronary disease seen on catheterization (6) Pulmonary hypertension: Moderate, as seen on ECHO here Could be secondary to Pulm disease or PEs or from hypervolemia -diuresis continues (7) Mitral regurgitation: Mod-severe seen on ECHO here (8) Sinus tachycardia: compensatory Could also be from PEs -Continues on metoproolol succinate (9) Situational anxiety: worsening anxiety over many months with staying at home all the time, taking care fo declining mother -denies depressive symptoms, denies SI or HI Also with severe phobia of needles -will try to minimize blood draws as much as possible -order IV ativan prn anxiety -consider adding SSRI such as Zoloft prior to discharge -he declines Psychiatric consultation (10) Tobacco abuse: Smokes 2 PPD - Nicotine patch 21mg Prophylaxis--> heparin gtt Subjective Patient is related to his catheterization showed nonocclusive disease he has no active complaints or problems he understands we need to adjust medications both for his heart failure and his pulmonary embolism and hopefully should happen home the next day or 2 Review of Systems Review of Systems: ROS: well nourished well developed. No double vision blurry vision No problems with speech or swallowing No palpitations, chest pain or pressure No Wheezing or breathing issues still with lower extremity swelling No abdominal pain nausea vomiting diarrhea changes in appetite or weight No burning urine urine frequency or changes in color No focal joint pain or muscle pain No skin rashes or oral lesions No unusual bruising or bleeding No focused back pain or numbness or loss of strength No changes in memory or confusion Physical Exam Physical Exam: The patient appeared well nourished and normally developed is in no active distress Vital signs as documented. Head exam is unremarkable. normocephalic, atraumatic Neck is with persistent jugular venous distension, thyromegaly, or lymphademopathy Lungs however are clear to auscultation and percussion. Cardiac exam reveals Rhythm is regular. First and second heart sounds normal. Right wrist catheterization site has IT band in place but it appears without changes he has good sensation and capillary refill distal to his fingers Abdominal exam reveals normal bowel sounds, no masses, no organomegaly Extremities are mildly edematous and both pedal pulses are present Neurologic exam is A&Ox3, no focal deficits, strength is equal bilateral Psychologically seems neither anxious or depressed Skin is warm Dry without bruises or lesions Results & Data Vital Signs (Past 12 Hours) Vital Signs Temp Pulse Resp BP BP Pulse Ox 04/10/19 13:20 76 20 116/77 95 04/10/19 13:05 78 20 140/93 95 04/10/19 12:45 80 20 126/75 95 04/10/19 12:29 97 H 20 111/69 96 04/10/19 12:20 36.8 C 99 H 20 113/62 100 04/10/19 07:06 36.7 C 106 H 24 112/79 99 04/10/19 02:40 36.2 C L 94 H 20 110/79 99 PG Care Time/CCT Total # of Minutes Spent Total Time Spent with Patient: Total time spent is greater than 50% in coordination of care (as documented) at patient's floor/unit and/or counseling patient: (1) Pulmonary embolism Acute cor pulmonale presence: without acute cor pulmonale Chronicity: acute Pulmonary embolism type: unspecified Qualified Code(s): I26.99 - Other pulmonary embolism without acute cor pulmonale
--- NOTE | 2019-04-10 14:31 | Post Anesthesia Assessment ---
Date of Service April 10, 2019 Post Sedation Assessment Vital Signs Temp Pulse Pulse Pulse Resp BP BP 04/10/19 14:22 103 H 20 96/63 L 04/10/19 14:00 36.8 C 115/87 04/10/19 13:20 76 20 116/77 04/10/19 13:05 78 20 140/93 04/10/19 12:45 80 20 126/75 04/10/19 12:29 97 H 20 111/69 04/10/19 12:20 36.8 C 99 H 20 113/62 04/10/19 07:06 36.7 C 106 H 24 112/79 04/10/19 02:40 36.2 C L 94 H 20 110/79 04/10/19 01:23 114 H 04/09/19 23:13 36.7 C 102 H 20 113/78 04/09/19 15:00 36.6 C 111 H 19 126/91 Pulse Ox 04/10/19 14:22 95 04/10/19 14:00 95 04/10/19 13:20 95 04/10/19 13:05 95 04/10/19 12:45 95 04/10/19 12:29 96 04/10/19 12:20 100 04/10/19 07:06 99 04/10/19 02:40 99 04/10/19 01:23 04/09/19 23:13 98 04/09/19 15:00 96 Recovery Score Activity: Moves 4 extremities Respiration: Deep Breath/Cough Circulation: +/-20% PreAnes Value Consciousness: Fully Awake Oxygen Saturation: > 92% On Room Air Post Sedation Plan On clinical assessment, the patient appears to have tolerated the sedation without complications. Patient is recovering as anticipated. Patient will continue to be monitored by nursing and may be discharged when sedation discharge criteria are met per below protocol. Upon Completions of procedure and additional 15 minutes continue every 5 minute vital signs and the P.A.R. score; then discharge to a Phase I or Fast Track to Phase II per the following guidelines: * Discharge Patient to appropriate Phase II area if PAR is 8 or greater or return to pre- procedure baseline. The post - procedure orders will be as directed. * If PAR score is less than 8 or not return to pre-procedure baseline then patient will follow Phase I monitoring till PAR is reached for Phase II. The Phase I may be done in procedure room or may call to secure a Phase I area. * If naloxone or flumazenil are used for reversal, hold in Phase I for continued monitoring from when last reversal dose was given for a minimum of 60 minutes or longer pending the nurse and/or physician discretion of patient condition before discharge to Phase II. Please call the Sedation Physician to re-evaluate and complete post-note for discharge to Phase II area. Do NOT discharge from procedure sedation or Phase 1 until post- sedation evaluation note is complete by procedure /sedation MD Sedation Discharge Instructions to be given to the patient at discharge to home.
[2019-04-10] MEDS: ATORVASTATIN 40 MG TAB PO SCH (20:20)
[2019-04-11] MEDS: Heparin Adult STANDARD Wt-Based Dextrose 5% 25,000 units/500 mL IV SCH (05:52)
[2019-04-11 06:52] LABS: iSTAT Arterial Blood Gas HCO3 29 meg/L (19-24); iSTAT Arterial Blood Gas pCO2 47 mmHg (35-46); iSTAT Carbon Dioxide 31 mEq/l (24-31)
[2019-04-11 07:36] LABS: BUN Creatinine Ratio 15.6 (10-20); Calcium 8.5 mg/dl (8.5-10.1); Creatinine Clr Calc Pharmacy 85.8 ml/min; Est GFR (African American) 94.2; Est GFR (Non-African American) 81.3; Potassium 3.7 mmol/L (3.5-5.1)
[2019-04-11] MEDS: SACUBITRIL-VALSARTAN 24-26 MG TAB PO SCH (08:07)
[2019-04-11] MEDS: FUROSEMIDE 40 MG in SYRINGE 0 ML IV SCH (08:07)
[2019-04-11] MEDS: METOPROLOL SUCC 25MG EXT REL TAB PO SCH (08:08)
[2019-04-11] MEDS: NICOTINE 21 MG/24 HR TDSY TD SCH (08:08)
[2019-04-11] MEDS: ASPIRIN 81 MG ECTAB PO SCH (08:08)
[2019-04-11 10:02] LABS: Partial Thromboplastin Ratio 1.9
[2019-04-11 10:06] LABS: Partial Thromboplastin Time 50.7 Seconds (21.0-31.0)
[2019-04-11] MEDS ORDERED: APIXABAN 5 MG TABLET PO STA (10:21)
--- NOTE | 2019-04-11 10:45 | Cardiology Progress Note ---
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 He has diuresed nicely throughout this hospital stay. He states that he is leaving today and does not want discharge to be delayed for any further testing at this time. Can start with Lasix 40 mg p.o. once daily on discharge but he may require more. Heart failure program follow-up. Appointment is being made for him for next week. Continue metoprolol succinate and Entresto. We have discussed importance of a low-sodium diet, less than 2000 mg daily. Check daily weights. (2) Cardiomyopathy: Nonischemic cardiomyopathy. Continue metoprolol succinate and Entresto. Would titrate metoprolol succinate at his follow-up appointment. Secondary workup recommended. This can be done as an outpatient at his follow-up appointment. Titrate medications over time. Hopefully LV systolic function improved over time. (3) Mitral regurgitation: Hopefully this improves with diuresis. We discussed checking an echo today however he declines and states that he is going home. This can be done as an outpatient. If he has significant mitral regurgitation despite significant diuresis, would consider transesophageal echo. (4) Pulmonary hypertension: Likely due to hypervolemia but also was diagnosed with pulmonary embolism. Right heart catheterization demonstrated normal pulmonary pressures after diuresis. (5) Pulmonary embolism: On anticoagulation as per primary service. (6) CAD (coronary artery disease), [place] coronary artery: Severe CAD involving large D1 but his degree of CAD would not explain his cardiomyopathy. Continue aspirin 81 mg daily. Continue high-intensity statin therapy, and beta-kunal. No angina. (7) Tobacco abuse: We once again discussed importance of smoking cessation. Disposition: Follow-up with Heart failure program within 1 week. Follow-up with Dr. Saldivar at the [place] office in 1 month. Cardiology office is making these appointments for him. Plan of care discussed with Dr. Padilla of the primary hospitalist service. Subjective He denies shortness of breath. He denies chest pain, syncope, near-syncope, palpitations, orthopnea, edema, or bleeding. He had cardiac catheterization yesterday which he tolerated well. He was found to have nonischemic cardiomyopathy. He stated today that he is leaving. He does not want any further testing today. He heard that his mother had some issues yesterday and he wants to return home to her now. Review of systems: As above. Physical Exam Physical Exam: Gen.: No acute distress. Alert and oriented. HEENT: Anicteric sclera. Neck: Mild JVD. Cardiac: Regular with mild tachycardia. Normal S1-S2. No murmurs, rubs, or gallops. Pulmonary: Clear to auscultation bilaterally. Decreased breath sounds throughout. Abdomen: Soft, nontender, nondistended, with normoactive bowel sounds. No bruits noted. Extremities: Right radial cath site is clean, dry, and intact without erythema. 2+ right radial pulse. Trace left lower extremity edema. No cyanosis. Psych: Affect appears appropriate. Results & Data Vital Signs (Past 12 Hours) Vital Signs Temp Pulse Pulse Pulse Resp BP BP 04/11/19 10:18 36.9 C 111 H 96 H 16 106/70 100/67 04/11/19 06:55 36.9 C 96 H 16 100/67 04/11/19 02:46 36.8 C 95 H 16 99/64 L 04/10/19 23:53 106/70 93/58 L 04/10/19 23:21 99 H 04/10/19 22:55 36.9 C 95 H 16 90/59 L Pulse Ox 04/11/19 10:18 97 04/11/19 06:55 97 04/11/19 02:46 97 04/10/19 23:53 04/10/19 23:21 04/10/19 22:55 98 Laboratory Results Laboratory Results - last 24 hr 04/10/19 04/10/19 04/10/19 11:36 11:39 11:41 APTT PTT Ratio Activ Coag Time Kaolin 131 POC pH 7.42 7.40 POC pCO2 40 47 H POC pO2 82 34 L POC HCO3 26 H 29 H POC Total CO2 28 31 POC Base Excess 2.0 H 4.0 H POC ABG O2 Sat 96.0 H 65.0 L Sodium Potassium Chloride Carbon Dioxide Anion Gap BUN Creatinine Est Cr Clr Drug Dosing Est GFR ( Amer) Est GFR (Non-Af Amer) BUN/Creatinine Ratio Glucose Calcium 04/11/19 04/11/19 06:54 09:24 APTT 50.7 H* PTT Ratio 1.9 Activ Coag Time Kaolin POC pH POC pCO2 POC pO2 POC HCO3 POC Total CO2 POC Base Excess POC ABG O2 Sat Sodium 137 Potassium 3.7 Chloride 104 Carbon Dioxide 29 Anion Gap 5.0 BUN 17 Creatinine 1.08 Est Cr Clr Drug Dosing 85.8 Est GFR ( Amer) 94.2 Est GFR (Non-Af Amer) 81.3 BUN/Creatinine Ratio 15.6 Glucose 135 H Calcium 8.5 Diagnostic Findings Telemetry personally reviewed: Sinus rhythm. No arrhythmia. Cardiac catheterization 04/10/2019: Proximal LAD 10%. Distal LAD 30%. Large D1 with proximal 70-80% stenosis. Dominant RCA. Proximal RCA 30-40%. Mid RCA 20%. LVEDP 23. PCWP 12. PA pressure 22/10 with a mean of 11. Cardiac index 2.1 via thermodilution. Medications Administered Current Inpatient Medications Acetaminophen (Tylenol) 650 mg PO Q4H PRN PRN Reason: Pain or Fever Stop: 05/07/19 19:40 Last Admin: 04/08/19 22:40 Dose: 650 mg Documented by: Al Hydrox/Mg Hydrox/Simethicone (Maalox) 15 ml PO Q4H PRN PRN Reason: Dyspepsia Stop: 05/07/19 19:40 Aspirin (Ecotrin Ectab) [facility] [place] Stop: 05/08/19 10:59 Last Admin: 04/11/19 08:08 Dose: 81 mg Documented by: Atorvastatin Calcium (Lipitor) 80 mg PO [facility] Stop: 05/08/19 20:59 Last Admin: 04/10/19 20:20 Dose: 80 mg Documented by: Furosemide 40 mg/ Syringe 4 mls @ 4 mls/min IV BID@0900,1800 [facility] Stop: 05/08/19 17:59 Last Admin: 04/11/19 08:07 Dose: 4 mls/min Documented by: Lorazepam (Ativan) 0.5 mg in 1 mls @ 1 mls/min IV Q4H PRN PRN Reason: Anxiety Stop: 05/08/19 11:01 Last Admin: 04/10/19 01:12 Dose: 1 mls/min Documented by: Ioversol (Optiray 320 125ml) 109 ml IV ONCE PRN PRN Reason: Interaction Checking Stop: 04/11/19 16:05 Last Admin: 04/07/19 16:07 Dose: 109 ml Documented by: Magnesium Hydroxide (Milk Of Magnesia) 30 ml PO Q12H PRN PRN Reason: Constipation Stop: 05/07/19 19:40 Metoprolol Succinate (Toprol Xl) 25 mg PO QAM [facility] Stop: 05/09/19 09:14 Last Admin: 04/11/19 08:08 Dose: 25 mg Documented by: Miscellaneous (Remove Nicoderm Patch) 1 ea N/A HS [facility] Stop: 05/07/19 20:59 Last Admin: 04/10/19 21:05 Dose: 1 ea Documented by: Nicotine (Nicoderm Cq) 21 mg TD QAM [facility] Stop: 05/08/19 10:59 Last Admin: 04/11/19 08:08 Dose: 21 mg Documented by: Ondansetron HCl (Zofran) 4 mg IV Q6H PRN PRN Reason: Nausea Stop: 05/07/19 19:40 Polyethylene Glycol (Miralax Powder Packet) 17 gm PO DAILY PRN PRN Reason: Constipation Stop: 05/07/19 19:40 Sacubitril/Valsartan (Entresto 24/26mg) 1 tab PO BID [facility] Stop: 05/10/19 08:59 Last Admin: 04/11/19 08:07 Dose: 1 tab Documented by: Zolpidem Tartrate (Ambien) 5 mg PO HS PRN PRN Reason: Sleep Stop: 05/07/19 19:40 (1) Pulmonary embolism Acute cor pulmonale presence: without acute cor pulmonale Chronicity: acute Pulmonary embolism type: unspecified Qualified Code(s): I26.99 - Other pulmonary embolism without acute cor pulmonale
--- NOTE | 2019-04-11 16:33 | Discharge Summary ---
Date of Service April 11, 2019 Admission HPI Per Admitting Provider 48 y/o M who denies a significant medical history, although he does smoke 2 packs of cigarettes daily and has not been to an MD in over 10 years. He presented to [facility] with dyspnea and LE edema. He was diagnosed with BL PEs. He states that LE dopplers were negative. He then proceeded to leave [facility] after receiving a dose of SQ Lovenox. He presents today with persistent symptoms. He denies CP and did not display hypoxia, however, he was considerably tachycardic at the time of evaluation. A CTA was repeated and demonstrated segmental pulmonary emboli of the bilateral lower lobes without evidence of right heart strain or definite pulmonary infarction. Cardiomegaly with coronary arterial calcifications is also seen. He states his edema has been present and progressive for 2 weeks. The pt's BP was persistently elevated while in the ER. Initial labs were notable for an elevated troponin. An EKG did not show a strain patter. Sinus tach and LVH were apparent. PMH: Denies known PMH Surgical: Denies Social: His current vocation is caring for his elderly mother. He smokes 2 packs/day for > 20 yrs. He does not drink alcohol, smokes marijuana rarely. Family: Father owing to COPD, bladder CA - had bypass for CAD. Mother is alive with dementia. Principal Diagnosis non ischemic cardiomyopathy pulmonary embolism tobacco abuse with cessation counselling Discharge Exam Eyes no conjunctival abnormality and no scleral abnormality Neck normal visual inspection and trachea midline Respiratory normal respiratory effort; no respiratory distress Auscultation: lungs clear to auscultation bilaterally Cardiovascular RRR, no murmur, no edema Gastrointestinal (Abdomen) normal bowel sounds, soft, nontender, no hepatosplenomegaly Discharge Data Allergies Allergy/AdvReac Type Severity Reaction Status Date / Time cefaclor [From Ceclor] Allergy Severe Hives Unverified 04/07/19 15:13 Penicillins Allergy Severe Rash Unverified 04/07/19 15:13 bee venom protein (honey bee) Allergy Intermediate Unknown Unverified 04/07/19 15:13 cat dander Allergy Intermediate itchy Unverified 04/07/19 15:13 watery eyes dust Allergy Intermediate itchy Uncoded 04/07/19 15:13 watery eyes Consultations 04/07/19 17:00 ED Decision to Admit Stat 04/08/19 08:01 Consult Cardiology Routine Procedures Performed Operation Date: 04/10/19 11:30 Actual Procedures p Cath, Right and Left Heart - Arnol Horowitz MD s Cineradiography w/Routine Exam - Arnol Horowitz MD Ordered Studies 04/07/19 14:31 CT angio chest PE protocol Stat 04/10/19 09:56 CL Cath Imgs for PACS use only Routine Hospital Course (1) Pulmonary embolism: This pt is a 48 y/o male who denies a significant medical history, although he does smoke 2 packs of cigarettes daily and has not been to an MD in over 10 years. He presented to [facility] with dyspnea and LE edema. He was diagnosed with BL PEs. He states that LE dopplers were negative. He then proceeded to leave [facility] after receiving a dose of SQ Lovenox. He presents here 2 days later with persistent symptoms. He denies CP and did not display hypoxia, however, he was considerably tachycardic at the time of evaluation. A CTA was repeated and demonstrated segmental pulmonary emboli of the bilateral lower lobes without evidence of right heart strain or definite pulmonary infarction. Cardiomegaly with coronary arterial calcifications is also seen. He states his edema has been present and progressive for 2 weeks. Initial labs were notable for an elevated troponin. An EKG did not show a strain pattern. Sinus tach and LVH were apparent. BL PE - no known precipitating factors, but now with known severely reduced LV function, could have caused a low flow state and venous congestion in legs leading to DVTs. Reportedly, Dopplers LEs at [facility] were negative, but may have moved all clot to the lungs. No evidence of Pulm malignancy on CT chest. Not requiring O2 Has some mild RV dysfunction on ECHO but this is likely more from left sided heart failure (2) Cardiomyopathy: LVEF 15-20% on ECHO nonocclusive coronary disease seen on cardiac catheterization repeat echocardiogram will be performed as an outpt by cardiology Patient will have heart failure clinic follow-up after discharge (3) Acute systolic CHF (congestive heart failure): New, Severe LV dysfunction as above, Continues with oral Lasix Patient placed on Entresto plus metoprolol (4) CAD (coronary artery disease), [place] coronary artery: Suspected, due to coronary artery calcifications seen on chest CT, CHF, and +troponin Secondary to smoking, +FH -start ASA 81mg daily -start atorvastatin 80mg daily -metoprolol succinate and entresto (5) Elevated troponin: mildly elevated at 0.046/0.053 Troponin elevation is demand ischemia as he is nonocclusive coronary disease seen on catheterization (6) Pulmonary hypertension: Moderate, as seen on ECHO here Could be secondary to Pulm disease or PEs or from hypervolemia -diuresis continues (7) Mitral regurgitation: Mod-severe seen on ECHO here (8) Sinus tachycardia: compensatory Could also be from PEs -Continues on metoproolol succinate (9) Situational anxiety: worsening anxiety over many months with staying at home all the time, taking care fo declining mother -denies depressive symptoms, denies SI or HI Also with severe phobia of needles -he declines Psychiatric consultation (10) Tobacco abuse: Smokes 2 PPD counselled about stopping pt states he will think about it Total Time Total Time Spent Total Time Spent (In Minutes): greater than 30 minutes were required to prepare discharge Discharge Plan Discharge Items Patient Disposition: Home - Self-Care Reason For Visit: PE Discharge Diagnosis: congestive heart failure Discharge Goals: Decrease discomfort and Diagnostic testing Activity: Resume your previous activity Activity Comment: do not over exert yourself Non-emergency contact: Primary Care Provider and Associate Professor Of Art History Call non-emergency contact if: you have any medication questions Follow-up/Referrals: Kevin Vargas DO [Outside Practitioners] - 04/13/19 2:15 pm (Please, follow up with Dr. Vargas on TuesdayApril 13 at 2:15 pm. *If you have questions, call his office at [phone].) Carolyn Espinoza PA-C [Physician Bank Worker] - 04/16/19 10:10 am (Please, follow up at [facility] Cardiology Office with Whit Espinoza PA-C on TuesdayApril 16 at 10:30 am (arrive 10:10 am). *The office is located in [address] of [facility]. This is the big [facility]. If you need to change this appointment, call the office at [phone].) Diet: Low Sodium (2gm) Addtl Provider Instructions: ACTIVITY RECOMMENDATIONS: Excess manipulation of the wrist should be avoided for the next 24-48 hours. * No lifting over 2 pounds (approximately a 1/2 gallon of milk) with the utilized arm for 24 hours. * No strenuous activity such as bowling or tennis for 3 days. * Keep the site of the procedure covered with a bandage for 24 hours. *You may shower the day after the procedure. Do not take a tub bath or submerge the puncture site in water for the next 3 days. *Do not operate any motorized equipment for 3 days. SPECIAL CARE INSTRUCTIONS: The site may be slightly bruised and sore following your procedure. Should any of the following occur, contact the Dr. who performed your procedure. 1. Redness/inflammation, swelling, chills, or fever, or colored drainage at procedure site within 3-7 days after your procedure. 2. Coldness, discoloration, ongoing numbness, severe pain, or swelling. Expect mild tingling of hand and tenderness at the puncture site for up to three days. If this persists beyond three days, or other symptoms develop, notify the Dr. who performed your procedure. BLEEDING: If the procedure site on your wrist begins to bleed, do not panic 1. Place 1 or 2 fingers firmly just slightly above the insertion site to stop the bleeding. You may be able to feel your pulse as you hold pressure. 2. Lift your finger after 5 minutes to see if the bleeding has stopped. 3. Once the bleeding has stopped, gently wipe the wrist area clean with a bandage. * If the bleeding from your wrist does not stop after 10 minutes, or if there is a large amount of bleeding or spurting, call 911 (do not drive yourself to the hospital). SKIN IRRITATION: * You may experience some redness and/or swelling in the area where radiation was administered. If any skin irritation occurs, please contact your family physician. FOLLOW UP VISIT: Keep any scheduled doctor appointments. Call 911 and go to the Emergency Room if: * You have tightness or pain in your chest that does not go away with rest or Nitroglycerin * You are very short of breath even with rest Call your doctor if any of the following symptoms or problems start or get worse: * Shortness of breath or difficulty breathing * Wake up at night short of breath * Chest pain * Cough * Swelling of your hands, fee, or legs * More fatigued or tired with your normal activity * Palpitations - sudden fast heart beats WEIGHT * Weigh yourself every morning after using the bathroom. * Use the same scale. * Wear the same amount of clothing. * Write your weight down on your chart. * Call your doctor if you gain more than 2-3 pounds in 1-2 days. MEDICATIONS * Use this discharge instruction sheet for instructions. * Take your medications at the time your doctor ordered. * Do not skip a dose of your medicines. * If you miss a dose of medicine, take as soon as possible, but DO NOT DOUBLE A DOSE. * Read your medicine information when you get home. * Know all of the side effects of your medicine. * Call your doctor's office if you have any side effects. * Be sure all of your doctors know what medicine and herbs you take (including cold, flu, and herbal medicine). * Pain Medicine: If you do not get relief from your pain, please call your doctor for help. Take the following with you to your follow-up doctor appointments: * Weight Chart * Medication List * List of questions Do not drink excessive alcohol, beer or wine. Prescriptions: New aspirin [Ecotrin Low Strength] 81 mg Tablet,Delayed Release (Dr/Ec) 81 mg PO QAM Qty: 90 RF: 3 metoprolol succinate 25 mg Tablet Extended Release 24 Hr 25 mg PO QAM Qty: 30 RF: 3 Entresto 24-26 mg Tablet 1 tab PO BID Qty: 30 RF: 3 Eliquis 5 mg tablet 5 mg PO BID Qty: 60 RF: 5 furosemide 40 mg tablet 40 mg PO DAILY Qty: 30 RF: 5 No Action No Known Home Medications RF: 0 Stand-Alone Forms: [facility]/Other Patient Handouts: Prediabetes, Diabetes Meal Planning Discharge Orders: Discharge Order (Routine); Ordered 04/11/19 Ordered By: Thai Padilla Admission Data Admit Date/Time: 04/07/19 18:21 Attending Provider: Thai Padilla Admit Provider: Eldon Archer Primary Care Provider: PCP,NO Other Providers: Eldon Archer ; Arnol Horowitz ; Niya Pelletier Service: Telemetry Other Interventions: Discharge Summary Assessment (RN) Last Done: 04/11/19 10:18 DC Date/Time DO NOT enter until pt leaves facility: 04/11/19 11:49
== END 2019-04-11 11:49 | disposition home or self-care (01) | DRG 286 ==
LOC: ED 13:53 → 2S 18:21 → SUATTDRO 18:21 → 2S 19:18

== ENCOUNTER 2024-05-10 20:57 | Inpatient (IN) ==
[2024-05-10] MEDS: PHENAZOPYRIDINE HCL 200 MG TAB ONE (22:06)
[2024-05-10 22:14] LABS: Basophils # (auto) 0.08 K/uL (0.00-0.20); Basophils % (auto) 0.7 %; Eosinophils # (auto) 0.11 K/uL (0.00-0.50); Eosinophils % (auto) 0.9 %; Hematocrit (blood only) 43.5 % (42.0-52.0); Immature Granulocytes # (auto) 0.13 K/uL (0.01-0.20); Immature Granulocytes % (auto) 1.1 %; Lymphocytes # (auto) 1.68 K/uL (1.20-3.40); Lymphocytes % (auto) 14.4 %; Mean Corpuscular Hemoglobin 29.4 pg (25.0-34.0); Mean Corpuscular Hgb Conc 34.5 g/dL (32.0-36.0); Mean Corpuscular Volume 85.3 fL (80.0-100.0); Mean Platelet Volume 12.5 fL (9.4-12.4); Monocytes # (auto) 1.15 K/uL (0.11-0.59); Monocytes % (auto) 9.8 %; Neutrophils # (auto) 8.54 K/uL (1.40-6.50); Neutrophils % (auto) 73.1 %; Platelet Count 284 K/uL (130-400); RDW Coefficient of Variation 12.7 % (11.5-14.5); RDW Standard Deviation 39.4 fL (36.4-46.3); White Blood Count 11.69 K/ul (4.8-10.8)
[2024-05-10] MEDS: PHENAZOPYRIDINE HCL 200 MG TAB PO STA (22:19)
[2024-05-10 22:22] LABS: Appearance Urine Clear (Clear); Bacteria Urine Automated None Seen (None Seen); Bilirubin Urine Negative (Negative); Blood Urine 1+ (Negative); Cast Urine Automated 0-2 /lpf (0-2); Color Urine Yellow; Epithelial Cell Urine Auto 0-2 /hpf (0-2); Glucose Urine UA 3+ (Negative); Ketones Urine Negative (Negative); Leukocyte Esterase Urine Negative (Negative); Nitrite Urine Negative (Negative); Protein Urine Negative (Negative); Specific Gravity Urine 1.033 (1.000-1.030); Urobilinogen Urine Negative (Negative); WBC Urine Automated 0-5 /hpf (0-5); pH Urine 5.5 (4.5-7.5)
--- NOTE | 2024-05-10 22:31 | Emergency Department Note ---
History of Present Illness General Chief complaint: Urinary Symptoms Stated complaint: HARD TO URINATE/PAINFUL, HEMROIDS Time Seen by Provider: 05/10/24 21:25 History of Present Illness Maximum Pain Intensity: 3 This 53-year-old male presents ER complaining of increasing urinary issues for the past few weeks. Patient states he feels like he has to urinate and is not emptying his bladder. He does have some bladder discomfort. Patient denies penile pain, testicular pain, abdominal pain, flank pain, fever, chills. No history of urinary retention. No known history of diabetes. Home Medications Medication Instructions Recorded Confirmed Type aspirin 81 mg tablet,delayed 81 mg PO QAM #90 tabs 04/11/19 05/10/24 Rx release (Ecotrin Low Strength) atorvastatin 40 mg tablet 40 mg PO DAILY #90 tabs 03/04/23 05/10/24 Rx digoxin 125 mcg (0.125 mg) tablet 125 mcg PO DAILY #90 tabs 03/04/23 05/10/24 Rx metoprolol succinate 200 mg 200 mg PO QAM #90 tabs 03/04/23 05/10/24 Rx tablet,extended release 24 hr apixaban 5 mg tablet (Eliquis) 5 mg PO BID #180 tabs 08/31/23 05/10/24 Rx sacubitril 97 mg-valsartan 103 mg 1 tab PO BID #60 tabs 11/07/23 05/10/24 Rx tablet Allergies Allergy/AdvReac Type Severity Reaction Status Date / Time [facility] [From [facility]] Allergy Severe Hives Unverified 05/11/24 00:04 Penicillins Allergy Severe Rash Unverified 05/11/24 00:04 bee venom protein (honey bee) Allergy Intermediate Unknown Unverified 05/11/24 00:04 cat dander Allergy Intermediate itchy Unverified 05/11/24 00:04 watery eyes Past Med/Surg History Problem List (Updated 05/10/24 @ 23:41 by Shalini Leger PA-C) AUTUMN (acute kidney injury) (Acute) New onset type 2 diabetes mellitus (Acute) Acute retention of urine (Acute) Situational anxiety (Acute) Tobacco abuse (Acute) CAD (coronary artery disease), [place] coronary artery Pulmonary hypertension Mitral regurgitation Pulmonary embolism (Acute) Medical History CHF (congestive heart failure) Acute systolic CHF (congestive heart failure) Sinus tachycardia Elevated troponin No significant past medical history Family History Mother Dementia Father COPD (chronic obstructive pulmonary disease) Social History Smoking Status: Current every day smoker Tobacco Type: Cigarettes Second Hand Exposure: No; Do You Dip or Chew Tobacco: No; Hx Alcohol Use: No Hx Substance Use: No Preferred Language: Hungarian Communication Ability: Effective Beliefs That Will Affect Care: None Current Living Situation: Parent Feels Safe at Home: Yes Assistive Devices: None Review of Systems A total of 10 systems reviewed and were otherwise negative Physical Exam Vital Signs Vital Signs - 24 hr 05/10/24 21:01 05/10/24 23:06 05/10/24 23:09 Temperature 36.5 C Temperature Source Temporal Artery Scan Pulse Rate 83 78 Pulse Rate [Right] 85 Pulse Rhythm Irregular Pulse Strength Normal Respiratory Rate 18 20 Respiratory Effort / Characteristics Non-Labored Spontaneous Non-Labored Spontaneous Respiratory Depth Normal Normal Respiratory Pattern Regular Blood Pressure 102/74 Blood Pressure [Left Arm] 115/78 Blood Pressure Mean 83 Blood Pressure Mean [Left Arm] 90 Blood Pressure Position Sitting Blood Pressure Position [Left Arm] Lying Pulse Oximetry 98 100 Oxygen Delivery Method Room Air Room Air Sepsis Recent Fever Within 48 Hours No Sepsis New/Unexplained Change in Mental Status N/A Sepsis Action Taken by Nursing No Action Required 05/11/24 00:21 05/11/24 01:19 Temperature Temperature Source Pulse Rate Pulse Rate [Right] 84 69 Pulse Rhythm Pulse Strength Respiratory Rate 18 16 Respiratory Effort / Characteristics Non-Labored Spontaneous Non-Labored Spontaneous Respiratory Depth Normal Normal Respiratory Pattern Blood Pressure Blood Pressure [Left Arm] 132/56 L 133/89 Blood Pressure Mean Blood Pressure Mean [Left Arm] 81 103 Blood Pressure Position Blood Pressure Position [Left Arm] Pulse Oximetry 98 96 Oxygen Delivery Method Room Air Room Air Sepsis Recent Fever Within 48 Hours Sepsis New/Unexplained Change in Mental Status Sepsis Action Taken by Nursing VITALS: Vitals are noted on the nurse's note and reviewed by myself. Vital signs stable. GENERAL: Pleasant male, in no acute distress, nondiaphoretic, well-developed well-nourished. SKIN: Capillary reflex less than 2 seconds. HEENT: Normocephalic. PERRLA. EOMI. Nares patent. Mucous membranes moist. Neck is supple without nuchal rigidity. HEART: Regular rate and rhythm LUNGS: Clear to auscultation bilaterally without wheezes, rales or rhonchi. No retractions or accessory muscle use. ABDOMEN: Positive bowel sounds x 4. Normal tympanic percussion. Soft, distended bladder, nontender, without masses or organomegaly. Land sign negative. No guarding or rebound tenderness. no CVA tenderness MUSCULOSKELETAL: No gross musculoskeletal defects. NEURO: Patient was alert and oriented to person place and time. No focal neurological deficits. Course Administered Medications Insulin Human Regular 250 (units/ Sodium Chloride) 250 mls @ 9 mls/hr IV .Q24H [facility]; Protocol Stop: 06/09/24 23:44 Last Admin: 05/11/24 00:34 Dose: 9 units/hr, 9 mls/hr Documented By: DILAN Co-signed By: BRAN Ondansetron HCl (Ondansetron Inj 2 Mg/Ml 2 Ml Vial) 4 mg IV Q6H PRN PRN Reason: Nausea And Vomiting Stop: 06/10/24 01:27 Last Admin: 05/11/24 01:35 Dose: 4 mg Documented By: DILAN Discontinued Medications Sodium Chloride (Nss) 1,000 mls @ 999 mls/hr IV .Q1H1M JAYLEEN Stop: 05/11/24 01:00 Last Infusion: 05/11/24 00:23 Dose: Infused Documented By: Admin: 05/10/24 23:18 Dose: 999 mls/hr Documented By: Infusion: 05/10/24 23:18 Dose: Infused Documented By: Admin: 05/10/24 23:06 Dose: 999 mls/hr Documented By: DILAN Lactated Ringer's (Lr) 2,000 mls @ 999 mls/hr IV .Q2H1M ONE Stop: 05/11/24 02:03 Last Admin: 05/11/24 00:34 Dose: 999 mls/hr Documented By: DILAN Famotidine (Pepcid 20mg Iv Push) 20 mg in 5 mls @ 2.5 mls/min IV NOW STA Stop: 05/11/24 01:28 Last Admin: 05/11/24 01:35 Dose: 2.5 mls/min Documented By: DILAN Insulin Human Regular (Novolin-R Bolus From Bag) 9 units IV ONE ONE Stop: 05/11/24 00:16 Last Admin: 05/11/24 00:35 Dose: 9 units Documented By: DILAN Co-signed By: BRAN Phenazopyridine HCl (Phenazopyridine Hcl 200 Mg Tab) Confirm Administered Dose 200 mg .ROUTE .STK-MED ONE Stop: 05/10/24 21:59 Last Admin: 05/10/24 22:06 Dose: 200 mg Documented By: ZULEIKA Phenazopyridine HCl (Phenazopyridine Hcl 200 Mg Tab) 200 mg PO NOW STA Stop: 05/10/24 22:09 Last Admin: 05/10/24 22:19 Dose: Not Given Documented By: ZULEIKA Medical Decision Making Medical Records Attestation: I reviewed the patient's medical records. Home Medications Current Medication List: was personally reviewed by me Laboratory Data Attestation: I reviewed the patient's lab results. 05/10/24 21:50 05/11/24 00:10 Lab Results 05/10/24 05/10/24 05/10/24 Range/Units 21:50 21:56 23:54 WBC 11.69 H (4.8-10.8) K/ul RBC 5.10 (4.70-6.10) M/uL Hgb 15.0 (14.0-18.0) g/dl Hct 43.5 (42.0-52.0) % MCV 85.3 (80.0-100.0) fL MCH 29.4 (25.0-34.0) pg MCHC 34.5 (32.0-36.0) g/dL RDW Std Deviation 39.4 (36.4-46.3) fL RDW Coeff of Alexa 12.7 (11.5-14.5) % Plt Count 284 (130-400) K/uL MPV 12.5 H (9.4-12.4) fL Immature Gran % (Auto) 1.1 % Neut % (Auto) 73.1 % Lymph % (Auto) 14.4 % [place] % (Auto) 9.8 % Eos % (Auto) 0.9 % Baso % (Auto) 0.7 % Neut # (Auto) 8.54 H (1.40-6.50) K/uL Lymph # (Auto) 1.68 (1.20-3.40) K/uL [place] # (Auto) 1.15 H (0.11-0.59) K/uL Eos # (Auto) 0.11 (0.00-0.50) K/uL Baso # (Auto) 0.08 (0.00-0.20) K/uL Immature Gran # (Auto) 0.13 (0.01-0.20) K/uL VBG pH (7.36-7.41) VBG pCO2 (38-50) mmHg VBG pO2 mmHg VBG HCO3 mmol/L VBG O2 Saturation % VBG Base Excess mEq/L Sodium 114 L* (136-145) mmol/L Potassium 5.6 H (3.5-5.1) mmol/L Chloride 86 L (98-107) mmol/L Carbon Dioxide 19 L (21-32) mmol/L Anion Gap 9 (3-11) BUN 48 H (6-23) mg/dl Creatinine 2.44 H (0.6-1.4) mg/dl Est Cr Clr Drug Dosing 37.7 ml/min Est GFR ( Amer) 34.0 ml/min Est GFR (Non-Af Amer) 29.3 ml/min BUN/Creatinine Ratio 19.7 (10-20) Glucose 1212 H* (70-99(Fasting)) mg/dl POC Glucose > 600 H* (70-99) mg/dl Calcium 9.9 (8.6-10.3) mg/dl Phosphorus (2.5-4.9) mg/dl Magnesium Total Bilirubin 0.6 (0.2-1.0) mg/dl AST 15 (13-39) U/L ALT 19 (7-52) U/L Alkaline Phosphatase 100 (34-104) U/L Troponin I High Sens Total Protein 6.5 (6.0-8.3) gm/dl Albumin 3.7 (3.4-5.0) gm/dl Globulin 2.8 (2.5-4.0) gm/dl Albumin/Globulin Ratio 1.3 (0.9-2) Urine Color Yellow Urine Appearance Clear (Clear) Urine pH 5.5 (4.5-7.5) Ur Specific [place] 1.033 H (1.000-1.030) Urine Protein Negative (Negative) Urine Glucose (UA) 3+ H (Negative) Urine Ketones Negative (Negative) Urine Blood 1+ H (Negative) Urine Nitrite Negative (Negative) Urine Bilirubin Negative (Negative) Urine Urobilinogen Negative (Negative) Ur Leukocyte Esterase Negative (Negative) Urine WBC (Auto) 0-5 (0-5) /hpf Urine RBC (Auto) 3-5 H (0-2) /hpf U Hyaline Cast (Auto) 0-2 (0-2) /lpf U Epithel Cells (Auto) 0-2 (0-2) /hpf Urine Bacteria (Auto) None Seen (None Seen) 05/11/24 05/11/24 05/11/24 Range/Units 00:02 00:10 01:16 WBC (4.8-10.8) K/ul RBC (4.70-6.10) M/uL Hgb (14.0-18.0) g/dl Hct (42.0-52.0) % MCV (80.0-100.0) fL MCH (25.0-34.0) pg MCHC (32.0-36.0) g/dL RDW Std Deviation (36.4-46.3) fL RDW Coeff of Alexa (11.5-14.5) % Plt Count (130-400) K/uL MPV (9.4-12.4) fL Immature Gran % (Auto) % Neut % (Auto) % Lymph % (Auto) % [place] % (Auto) % Eos % (Auto) % Baso % (Auto) % Neut # (Auto) (1.40-6.50) K/uL Lymph # (Auto) (1.20-3.40) K/uL [place] # (Auto) (0.11-0.59) K/uL Eos # (Auto) (0.00-0.50) K/uL Baso # (Auto) (0.00-0.20) K/uL Immature Gran # (Auto) (0.01-0.20) K/uL VBG pH 7.25 L (7.36-7.41) VBG pCO2 42 (38-50) mmHg VBG pO2 < 20 mmHg VBG HCO3 18 mmol/L VBG O2 Saturation < 60.0 % VBG Base Excess -8.5 mEq/L Sodium 116 L* (136-145) mmol/L Potassium 6.1 H* (3.5-5.1) mmol/L Chloride 90 L (98-107) mmol/L Carbon Dioxide 19 L (21-32) mmol/L Anion Gap 7 (3-11) BUN 46 H (6-23) mg/dl Creatinine 2.25 H (0.6-1.4) mg/dl Est Cr Clr Drug Dosing 40.9 ml/min Est GFR ( Amer) 37.5 ml/min Est GFR (Non-Af Amer) 32.3 ml/min BUN/Creatinine Ratio 20.4 H (10-20) Glucose 1202 H* (70-99(Fasting)) mg/dl POC Glucose > 600 H* (70-99) mg/dl Calcium 8.6 (8.6-10.3) mg/dl Phosphorus 2.4 L (2.5-4.9) mg/dl Magnesium Cancelled 1.8 Total Bilirubin (0.2-1.0) mg/dl AST (13-39) U/L ALT (7-52) U/L Alkaline Phosphatase (34-104) U/L Troponin I High Sens Cancelled 5.6 Total Protein (6.0-8.3) gm/dl Albumin (3.4-5.0) gm/dl Globulin (2.5-4.0) gm/dl Albumin/Globulin Ratio (0.9-2) Urine Color Urine Appearance (Clear) Urine pH (4.5-7.5) Ur Specific [place] (1.000-1.030) Urine Protein (Negative) Urine Glucose (UA) (Negative) Urine Ketones (Negative) Urine Blood (Negative) Urine Nitrite (Negative) Urine Bilirubin (Negative) Urine Urobilinogen (Negative) Ur Leukocyte Esterase (Negative) Urine WBC (Auto) (0-5) /hpf Urine RBC (Auto) (0-2) /hpf U Hyaline Cast (Auto) (0-2) /lpf U Epithel Cells (Auto) (0-2) /hpf Urine Bacteria (Auto) (None Seen) MDM Narrative Prior records/ancillary studies reviewed and summarized above. Nursing notes reviewed. Additional history obtained from family. The patient's history was concerning for urinary issues. Differential diagnosis: Etiologies such as urinary tension, prostate problem, UTI, metabolic, infection, electrolyte abnormalities, as well as others were entertained. Physical examination: As above. ER treatment provided: IV Lock An order was placed for continuous cardiac monitoring. The monitor shows a rate of 60-100 with a sinus rhythm per my interpretation. Postvoid bladder scan shows greater than 300 and Neri was placed IV fluids x 2 L. Insulin was started by medicine as patient was still getting fluids infused at time of admission. On reassessment the patient felt better. Diagnostics interpretation by me: EKG ordered for hyperglycemia EKG: Normal sinus, normal intervals, no acute ST-T wave changes. Impression normal sinus rhythm independently interpreted by myself The labs Independently Interpreted by myself revealed glucose greater than 1200 without DKA Urine without signs of infection Mild leukocytosis neg trop Consultation: A consultation was placed with the hospitalist. The case was discussed and diagnostics were reviewed. The patient was evaluated in the ER for further treatment. Exam and history seem consistent with new onset diabetes with glucose greater than 1200 with AUTUMN and urinary retention. Patient was given IV fluids. Insulin was ordered per request of medicine. Neri was placed. Patient is agreeable treatment plan admission. Medicine was consulted and the case is discussed. Patient was admitted to the medical service. By the evaluation outlined above emergent etiologies such as infection, cardiac sources, intracerebral event, toxologic, neurologic, as well as others were deemed relatively unlikely. The pt informed about the findings as listed above. All questions were answered and pleased with the treatment. The chart was completed utilizing [employer] Speech voice recognition software. Grammatical errors, random word insertions, pronoun errors, and incomplete sentences are an occassional consequence of this system due to software limitations, ambient noise, and hardware issues. Any formal questions or concerns about the content, text, or information contained within the body of this dictation should be directly addressed to the physician periodicals library assistant for clarification. Impression & Plan Acute retention of urine, New onset type 2 diabetes mellitus, AUTUMN (acute kidney injury) Discharge Plan Visit Data Chief Complaint: Urinary Symptoms Stated Complaint: HARD TO URINATE/PAINFUL, HEMROIDS ED Provider: Vargas Romero ED Midlevel Provider: Shalini Leger Discharge Problem: Acute retention of urine, New onset type 2 diabetes mellitus, AUTUMN (acute kidney injury) Patient Disposition: Admitted As Inpatient Condition: Good Discharge Instructions Interventions: ED Discharge Assessment Last Done: 05/11/24 01:53 Forms Stand Alone Forms: My [facility] [employer] Prescriptions Prescriptions: No Action atorvastatin 40 mg tablet 40 mg PO DAILY Qty: 90 3RF metoprolol succinate 200 mg tablet extended release 24 hr 200 mg PO QAM Qty: 90 3RF digoxin 125 mcg (0.125 mg) tablet 125 mcg PO DAILY Qty: 90 3RF Eliquis 5 mg tablet 5 mg PO BID Qty: 180 3RF sacubitril-valsartan 97-103 mg tablet 1 tab PO BID Qty: 60 11RF aspirin [Ecotrin Low Strength] 81 mg Tablet,Delayed Release (Dr/Ec) 81 mg PO QAM Qty: 90 3RF Referrals Referrals: Carolyn Espinoza, PAArceliaC [Physician [employer] Wiring Technician] -
[2024-05-10 22:53] LABS: Albumin Globulin Ratio 1.3 (0.9-2); Albumin Level 3.7 gm/dl (3.4-5.0); BUN Creatinine Ratio 19.7 (10-20); Bilirubin,Total 0.6 mg/dl (0.2-1.0); Calcium 9.9 mg/dl (8.6-10.3); Creatinine Clr Calc Pharmacy 37.7 ml/min; Est GFR (Non-African American) 29.3 ml/min; Globulin 2.8 gm/dl (2.5-4.0); Potassium 5.6 mmol/L (3.5-5.1); Total Protein 6.5 gm/dl (6.0-8.3)
[2024-05-10] MEDS: SODIUM CHLORIDE 0.9% 1,000 ML IV SCH (23:06)
[2024-05-10] MEDS ORDERED: STAT IV Infusion **Titration per Protocol STA (23:58)
[2024-05-10] MEDS ORDERED: INSULIN ASPART PER UNIT CHARGE SC STA (23:58)
[2024-05-10] MEDS ORDERED: PHARMACY GLYCEMIC MGMT CONSULT PRN (23:58)
[2024-05-11] MEDS ORDERED: GLUCAGON FOR INJ 1 MG VIAL IM PRN (00:15)
[2024-05-11] MEDS ORDERED: CARBOHYDRATES FOR HYPOGLYCEMIA PO PRN (00:15)
[2024-05-11] MEDS ORDERED: GLUCOSE 40% GEL 15 GM TUBE PO PRN (00:15)
[2024-05-11] MEDS ORDERED: GLUCOSE 10 TAB/TUBE PO PRN (00:15)
[2024-05-11] MEDS ORDERED: DEXTROSE 50% 50 ML SYRINGE IV PRN (00:15)
[2024-05-11 00:26] LABS: Base Excess VBG -8.5 mEq/L; HCO3 VBG 18 mmol/L; Oxygen Saturation VBG < 60.0 %; PCO2 VBG 42 mmHg (38-50); PO2 VBG < 20 mmHg; pH VBG 7.25 (7.36-7.41)
[2024-05-11] MEDS: LACTATED RINGER'S 2,000 ML IV ONE (00:34)
[2024-05-11] MEDS: INSULIN REGULAR 250 UNITS in SODIUM CHLORIDE 0.9% 247.5 ML IV SCH (00:34)
[2024-05-11] MEDS: NovoLIN-R BOLUS FROM BAG IV ONE (00:35)
--- NOTE | 2024-05-11 00:42 | History & Physical Report ---
Date of Service May 11, 2024 Assessment & Plan (1) Acute hyperglycemia: Plan: 53M with PMH CAD, sinus tachycardia, pulmonary hypertension, MR, who presented to the ER c/f urinary retention despite urinary urge clinically stable, now admitted for acute management of severe hyperglycemia (BSG-1212), electrolyte derangements discovered on initial labs. Hyperglycemia -Blood glucose 1212 on initial BMP in the ER. Na-114, K-5.6, Cr-2.44. No anion gap. -Started on IV insulin (10 units) on admission, placed insulin drip orders, per DKA protocol. -Now in the ICU on insulin drip per protocol orders. -Likely represents acute initial presentation of type 2 diabetes mellitus patient has strong family history, with 2 first-degree relatives with type 2 diabetes. * Admit to ICU n.p.o. * Continue insulin drip as above * BMP, Mg, VBG, Phos checks every 4 hours * Transition to SQ insulin once anion gap, serum glucose at goal * HgbA1c pending Hyponatremia/Hyperkalemia/AUTUMN -Electrolyte abnormalities, AUTUMN are direct result of the above problem. -Sodium obviously dilutional 2/2 severe hyperglycemia patient has no neurological symptoms. Corrected sodium = 141. -Potassium elevation likely due to extracellular glucose saturation. Normal sinus rhythm on EKG no significant changes from prior EKG (119). -Now s/p IVF bolus x 4 L total, currently on Plasma-Lyte A@200 mL/h, per protocol. * Manage as above * Trend repeat labs Acute Urinary Retention -Relieved s/p Neri catheter placement in the ER. -Suspect that urinary retention was actually typical presentation of frequent urination, thirst seen at initial presentation of diabetes. -Will keep catheter for now, reassess after primary hyperglycemic process has been managed. * Attempt trial of voiding in the a.m. CAD/Mitral Regurgitation/Pulmonary Hypertension (Chronic Problems) -Yearly follow-ups with Gamal Bowser of [facility]. Last visit 05/26/2023. Currently asymptomatic, no significant changes on EKG vs prior EKG. -P.o. home meds (Entresto, Toprol, digoxin, atorvastatin, apixaban, aspirin) held on admission for management of primary problem. * Resume home meds once able to tolerate p.o. Tobacco Abuse * Nicotine patch TD Code: Full code Dispo: ICU FEN/GI: NPO. Plasma-Lyte a, per hypoglycemia protocol DVT Prophylaxis: PT/OT: No Consults: Critical Care (2) Hyponatremia: (3) Acute hyperkalemia: (4) AUTUMN (acute kidney injury): (5) Acute retention of urine: (6) CAD (coronary artery disease), [place] coronary artery: (7) Pulmonary hypertension: (8) Mitral regurgitation: (9) Tobacco abuse: History of Present Illness Primary Care Provider: NO PCP Danial is a 53-year-old man with past medical history of bilateral PE, CHF, MR, pulmonary hypertension, and nonischemic cardiomyopathy, who presented to the ER today with a complaint of an inability to void despite an increased urge to urinate. ROS + slight fatigue. Otherwise, he denied fever, chills flank pain, abdominal pain, hematuria. In the ER, Neri catheter was placed, after which he immediately felt better. Initial labs were notable for for WBC-11.69, Na-114, K+ 5.6, Cr-2.44 (baseline 1.0-1.2), and serum glucose of 1212. He received NS boluses x 2 L and a dose of Pyridium. Hospitalist service was then consulted for admission. On admission, patient corroborated ER HPI. He also expressed a strong family history (mother, sister) of type 2 diabetes mellitus. He further admits to having a poor diet, admitting to consuming "a lot of sugary drinks." ROS+ slight fatigue. Otherwise ROS negative. Patient follows with Gamal Bowser of cardiology, last seen almost a year ago (05/26/2023 recommended follow-up in 1 year) for a now-resolved systolic CHF, as well as mitral regurgitation, pulmonary hypertension, and sinus tachycardia. Otherwise, he has no PCP or other chronic conditions. Patient was immediately started on 10 units of IV insulin, and an additional 2 L LR bolus. Following brief review of labs, and discussion with ticket scheduler attending, decision was made to transfer patient to the ICU for urgent management. The development assistant to the ICU physician was then notified verbally via phone and the patient was subsequently accepted for management. Allergies Allergy/AdvReac Type Severity Reaction Status Date / Time cefaclor [From [facility]] Allergy Severe Hives Unverified 05/11/24 00:04 Penicillins Allergy Severe Rash Unverified 05/11/24 00:04 bee venom protein (honey bee) Allergy Intermediate Unknown Unverified 05/11/24 00:04 cat dander Allergy Intermediate itchy Unverified 05/11/24 00:04 watery eyes Home Medications Medication Instructions Recorded Confirmed Type aspirin 81 mg tablet,delayed 81 mg PO QAM #90 tabs 04/11/19 05/10/24 Rx release (Ecotrin Low Strength) atorvastatin 40 mg tablet 40 mg PO DAILY #90 tabs 03/04/23 05/10/24 Rx digoxin 125 mcg (0.125 mg) tablet 125 mcg PO DAILY #90 tabs 03/04/23 05/10/24 Rx metoprolol succinate 200 mg 200 mg PO QAM #90 tabs 03/04/23 05/10/24 Rx tablet,extended release 24 hr apixaban 5 mg tablet (Eliquis) 5 mg PO BID #180 tabs 08/31/23 05/10/24 Rx sacubitril 97 mg-valsartan 103 mg 1 tab PO BID #60 tabs 11/07/23 05/10/24 Rx tablet Past Med/Surg History Problem List (Updated 05/11/24 @ 05:54 by Saman Bah PA-C) Hyperglycemia Acute hyperkalemia Hyponatremia Acute hyperglycemia AUTUMN (acute kidney injury) (Acute) New onset type 2 diabetes mellitus (Acute) Acute retention of urine (Acute) Situational anxiety (Acute) Tobacco abuse (Acute) CAD (coronary artery disease), [place] coronary artery Pulmonary hypertension Mitral regurgitation Pulmonary embolism (Acute) Medical History CHF (congestive heart failure) Acute systolic CHF (congestive heart failure) Sinus tachycardia Elevated troponin No significant past medical history Family History Mother Dementia Father COPD (chronic obstructive pulmonary disease) Social History Smoking Status: Heavy tobacco smoker Tobacco Type: Cigarettes Cigarettes Per Day: 20; Second Hand Exposure: No; Do You Dip or Chew Tobacco: No; Hx Alcohol Use: No Hx Substance Use: No Preferred Language: Faroese Communication Ability: Effective [employer] Required: No Beliefs That Will Affect Care: None Current Living Situation: Family Current Living Situation Comment: Lives at home with sister Other Information That Helps Us Care for You: No Feels Safe at Home: Yes Safety Concerns: Feels Safe At This Time Assistive Devices: Glasses Review of Systems Review of Systems: All systems reviewed & are unremarkable except as noted in HPI & below Physical Exam Physical Exam: General: no acute distress, speaking in full sentences Resp: good inspiratory effort, no labored breathing HEENT: conjunctivae appear clear, no audible congestion, no swelling noted face or lips Skin: skin appears dry, normal coloration, no rash visible on exposed skin areas Neuro: alert and oriented x3, no focal deficits appreciated Psych: euthymic affect, pleasant and interactive, logical thought process Results & Data Results & Data Vital Signs (Past 12 Hours) Vital Signs Temp Pulse Pulse Resp BP BP Pulse Ox 05/11/24 00:21 84 18 132/56 L 98 05/10/24 23:09 85 20 115/78 100 05/10/24 23:06 78 05/10/24 21:01 36.5 C 83 18 102/74 98 O2 Del Method 05/11/24 00:21 Room Air 05/10/24 23:09 Room Air 05/10/24 23:06 05/10/24 21:01 Room Air Code Status & VTE Plan Code Status Full code Critical Care Time 40 minutes Supervising Physician Co-Signing Physician Notes Attending addendum: I have physically seen this patient, have supervised the medical residents activities, and agree with the H&P unless as otherwise noted. Assessment and Plan: New onset diabetes mellitus- Patient's presenting symptoms of increased urinary issues few weeks, reported that he had to urinate frequently, and felt like he was not emptying his bladder. He does complain of some mild dysuria Glucose on admission was 1212, with anion gap 9 Started on insulin drip per protocol Admitted to the ICU due to need for frequent testing Serial BMP, VBG, magnesium and phosphorus levels every 4 hours until troponin Check hemoglobin A1c Will need diabetic education Acute kidney injury- Creatinine 2.44, with base 1.03 IV fluids per protocol bolus, then Plasma-Lyte at 200 mL/h Follow urine culture and sensitivity CAD/mitral regurgitation- Continue aspirin, metoprolol succinate and Entresto Check a digoxin level before continuing Pulmonary embolism history- Continue apixaban Resident Activity Tracking Resident Involvement: Resident Care Provided Care Provided: Adult Hospital Medicine (6) CAD (coronary artery disease), [place] coronary artery Associated angina: without angina [place] vs. transplanted heart: [place] heart Qualified Code(s): I25.10 - Atherosclerotic heart disease of [place] coronary artery without angina pectoris (8) Mitral regurgitation Cardiac valve disease etiology: etiology unspecified Qualified Code(s): I34.0 - Nonrheumatic mitral (valve) insufficiency
[2024-05-11 01:07] LABS: Troponin I High Sensitivity 5.6 pg/ml (0-20)
[2024-05-11 01:23] LABS: BUN Creatinine Ratio 20.4 (10-20); Calcium 8.6 mg/dl (8.6-10.3); Creatinine Clr Calc Pharmacy 40.9 ml/min; Est GFR (African American) 37.5 ml/min; Est GFR (Non-African American) 32.3 ml/min; Magnesium 1.8 mg/dl (1.7-2.4); Phosphorus 2.4 mg/dl (2.5-4.9); Potassium 6.1 mmol/L (3.5-5.1)
[2024-05-11] MEDS: ONDANSETRON INJ 2 MG/ML 2 ML VIAL IV PRN (01:35)
[2024-05-11] MEDS: FAMOTIDINE 20MG IV PUSH 20 MG/5 ML SYR IV STA (01:35)
[2024-05-11] MEDS: PLASMA-LYTE A 1,000 ML IV SCH (03:02)
[2024-05-11] MEDS: SODIUM CHLORIDE 0.45 % 1,000 ML IV SCH (03:07)
[2024-05-11] MEDS: CALCIUM GLUCONATE 1,000 MG/60 ML BAG IV STA (03:22)
--- NOTE | 2024-05-11 03:48 | Critical Care Consultation ---
Date of Consultation May 11, 2024 Assessment & Plan (1) Hyperglycemia: (2) Acute hyperkalemia: (3) AUTUMN (acute kidney injury): (4) New onset type 2 diabetes mellitus: (5) Tobacco abuse: (6) Pulmonary hypertension: (7) Cardiomyopathy: Plan Reason Critically Ill: 53-year-old male presenting with complaints of dysuria increasing thirst and found to be profoundly hyperglycemic and with electrolyte derangements requiring admission. NEURO - * CAM ICU: NEGATIVE CARDIAC/VASCULAR - * Cardiomyopathy, hypertension, CHF: * Continue with current medications when appropriate.Consider checking digoxin level tomorrow and restarting. Holding entresto. Restart metoprolol * EKG: Normal sinus rhythm at a rate of [address] or T wave abnormalities appreciated. * Monitor on telemetry. RESPIRATORY - * Significant smoking history. * Requesting nicotine patch while hospitalized. * Saturating well on room air. GI/NUTRITION - * Nausea and vomiting * The setting of hypoglycemia. * Prophylaxis: Famotidine * Ok to start diabetic diet RENAL/LYTES - * AUTUMN: * In the setting of hypovolemia with ongoing GI losses. * Hyperkalemia: * In the setting of profound hyperglycemia. * Pseudohyponatremia corrected sodium on presentation 132. * AUTUMN now resolving - * Urinary frequency: * Will d/c zimmerman ENDO - * Hyperglycemia: * Discontinue insulin gtt * Transition to Subq insulin. D/W pharmacy * Correct electrolytes as needed. HEME - * Stable H&H ID - * No concern for infection at this time. LINES/IV ACCESS - * PIVs x2 * Zimmerman DVT PROPHYLAXIS - * Eliquis * SCDs History of Present Illness Reason for Consultation: Hyperglycemia Requesting Physician: Dr. Chavarria Attending Physician: Benny Silva MD History of Present Illness Patient is a 53-year-old male with significant history of cardiomyopathy, CHF, coronary artery disease, significant tobacco abuse, pulmonary hypertension who presented to the emergency department in the setting of difficulty with urinating and bladder discomfort. During evaluation, the patient was found to have significant elevation of his serum glucose levels greater than 1200. He received intravenous fluid and was started on an insulin drip. His electrolytes demonstrate moderate derangement including hyperkalemia and AUTUMN. Patient without prior diagnosis of diabetes. He was started on insulin drip and ICU was consulted for management for the evening. Upon evaluation of the room B2, the patient is awake, alert, and oriented. He is complaining of intense nausea and associated vomiting. He admits that he has been nauseous and vomiting for the last few days, but has had some illness for the last few weeks. He admits that he has had increasing thirst and has been drinking large amounts of Mountain Dew and ice cold milk. There is been no recent upper respiratory infections. No recent sick contacts. No fevers or chills. He reports heartburn without complaints of chest pain, palpitations, dizziness, lightheadedness, or hemoptysis. He denies hematemesis. Allergies Allergy/AdvReac Type Severity Reaction Status Date / Time cefaclor [From [facility]] Allergy Severe Hives Unverified 05/11/24 00:04 Penicillins Allergy Severe Rash Unverified 05/11/24 00:04 bee venom protein (honey bee) Allergy Intermediate Unknown Unverified 05/11/24 00:04 cat dander Allergy Intermediate itchy Unverified 05/11/24 00:04 watery eyes Home Medications Medication Instructions Recorded Confirmed Type aspirin 81 mg tablet,delayed 81 mg PO QAM #90 tabs 04/11/19 05/10/24 Rx release (Ecotrin Low Strength) atorvastatin 40 mg tablet 40 mg PO DAILY #90 tabs 03/04/23 05/10/24 Rx digoxin 125 mcg (0.125 mg) tablet 125 mcg PO DAILY #90 tabs 03/04/23 05/10/24 Rx metoprolol succinate 200 mg 200 mg PO QAM #90 tabs 03/04/23 05/10/24 Rx tablet,extended release 24 hr apixaban 5 mg tablet (Eliquis) 5 mg PO BID #180 tabs 08/31/23 05/10/24 Rx sacubitril 97 mg-valsartan 103 mg 1 tab PO BID #60 tabs 11/07/23 05/10/24 Rx tablet Patient History Medical History CHF (congestive heart failure) Acute systolic CHF (congestive heart failure) Sinus tachycardia Elevated troponin No significant past medical history Family History Mother Dementia Father COPD (chronic obstructive pulmonary disease) Social History Smoking Status: Heavy tobacco smoker Tobacco Type: Cigarettes Cigarettes Per Day: 20; Second Hand Exposure: No; Do You Dip or Chew Tobacco: No; Hx Alcohol Use: No Hx Substance Use: No Preferred Language: [place]ian Communication Ability: Effective Health Information Manager Required: No Beliefs That Will Affect Care: None Current Living Situation: Family Current Living Situation Comment: Lives at home with sister Other Information That Helps Us Care for You: No Feels Safe at Home: Yes Safety Concerns: Feels Safe At This Time Assistive Devices: None Review of Systems Review of Systems: A complete 10 point review of systems was reviewed with the patient with pertinent positives and negatives as per history of present illness. All else were negative. Physical Exam Physical Exam: VITAL SIGNS - Vital signs and nursing notes were reviewed. GENERAL - 53-year-old male appearing his stated age who is in no acute distress. Communicates well with provider and answers questions appropriately. SKIN - Without rashes. HEAD - NC/AT. EYES - PERRL with EOMI bilaterally. Sclera anicteric. NOSE - Midline and without cyanosis. MOUTH/OROPHARYNX - Without perioral cyanosis. NECK - Neck with FROM. LUNGS - Chest wall symmetric without accessory muscle use, intercostals retractions, or central cyanosis. Normal vesicular breath sounds CTA B/L. No wheezes, rales, or rhonchi appreciated. CARDIAC - RRR with S1/S2. No murmur, rubs, or gallops appreciated. ABDOMEN - Abdominal contour flat without pulsations or visible masses. BS normoa ctive all four quadrants. No tenderness, palpable masses, hepatosplenomegaly, or ascites noted. EXTREMITIES - No clubbing or peripheral cyanosis. No pretibial edema present. +3/5 radial, posterior tibial, and dorsalis pedis pulses palpated throughout. +5/5 strength noted in UE/LE bilaterally. NEUROLOGIC - Cranial nerves II through XII grossly intact. Sensory intact to light touch throughout. Patellar reflexes +2/4. PSYCH - A&Ox3 and cooperates fully with examiner. Pt is very pleasant and interacts well with examiner. Results & Data Results & Data Vital Signs (Past 12 Hours) Vital Signs Temp Pulse Pulse Resp BP BP Pulse Ox 05/11/24 02:11 82 18 129/69 96 05/11/24 02:11 36.8 C 05/11/24 01:19 69 16 133/89 96 05/11/24 00:21 84 18 132/56 L 98 05/10/24 23:09 85 20 115/78 100 05/10/24 23:06 78 05/10/24 21:01 36.5 C 83 18 102/74 98 O2 Del Method 05/11/24 02:11 Room Air 05/11/24 02:11 05/11/24 01:19 Room Air 05/11/24 00:21 Room Air 05/10/24 23:09 Room Air 05/10/24 23:06 05/10/24 21:01 Room Air Coding Level of Care Code 90328 IN/OBS CONSULT LVL 4,60M Diagnoses Hyperglycemia R73.9 Acute hyperkalemia E87.5 AUTUMN (acute kidney injury) N17.9 New onset type 2 diabetes mellitus E11.9 Tobacco abuse Z72.0 Pulmonary hypertension I27.20 Cardiomyopathy I42.9
[2024-05-11] MEDS: NICOTINE 14 MG/24 HR PATCH TD SCH (03:55)
[2024-05-11 04:17] LABS: Calcium 8.5 mg/dl (8.6-10.3); Creatinine Clr Calc Pharmacy 54.4 ml/min; Est GFR (African American) 47.2 ml/min; Est GFR (Non-African American) 40.7 ml/min; Magnesium 1.7 mg/dl (1.7-2.4); Phosphorus 2.2 mg/dl (2.5-4.9); Potassium 4.4 mmol/L (3.5-5.1)
[2024-05-11] MEDS: D5W AND 1/2NSS + 20MEQ KCL 20 MEQ/1,000 ML BAG IV SCH (04:29)
[2024-05-11] MEDS: PENDING 1/2NSS+20mEq KCL IVF SCH (04:30)
[2024-05-11] MEDS: D5W AND 1/2NSS 1,000 ML IV SCH (04:31)
[2024-05-11] MEDS: PENDING D5 1/2NS+20mEq KCL IVF SCH (04:31)
--- NOTE | 2024-05-11 06:22 | Billing Data ---
Date of Service May 11, 2024 Coding Level of Care Code 60127 CRITICAL CARE
[2024-05-11 07:00] LABS: Estimated Average Glucose 407 mg/dl; Hemoglobin A1C 15.8 % (4.5-5.6)
[2024-05-11] MEDS: INSULIN ASPART PER UNIT CHARGE SC SCH ×2 (07:51→17:22)
[2024-05-11 08:20] LABS: BUN Creatinine Ratio 19.6 (10-20); Calcium 8.8 mg/dl (8.6-10.3); Creatinine Clr Calc Pharmacy 60.5 ml/min; Est GFR (African American) 53.3 ml/min; Magnesium 1.8 mg/dl (1.7-2.4); Phosphorus 2.3 mg/dl (2.5-4.9); Potassium 4.4 mmol/L (3.5-5.1)
[2024-05-11] MEDS ORDERED: NICOTINE 21 MG/24 HR TDSY TD SCH (09:00)
--- NOTE | 2024-05-11 09:47 | XCELERA ---
[id number] [id number]
--- NOTE | 2024-05-11 10:04 | Electrocardiogram Report ---
Test Reason : Blood Pressure : */* mmHG Vent. Rate : 79 BPM Atrial Rate : 79 BPM P-R Int : 188 ms QRS Dur : 100 ms QT Int : 338 ms P-R-T Axes : 44 41 42 degrees QTcB Int : 387 ms Normal sinus rhythm When compared with ECG of 30-May-2019 00:07, Non-specific change in ST segment in Lateral leads Nonspecific T wave abnormality no longer evident in Lateral leads Confirmed by Christian Lopes ([id number]) on 05/11/2024 10:03:55 AM Referred By: REFERRED SELF Confirmed By: Christian Lopes
[2024-05-11] MEDS ORDERED: METOPROLOL SUCC 50MG EXT REL TAB PO SCH (10:30)
[2024-05-11] MEDS: LANTUS PER UNIT CHARGE SC ONE ×2 (11:37→20:49)
[2024-05-11] MEDS: ATORVASTATIN 40 MG TAB PO SCH (12:23)
[2024-05-11] MEDS: METOPROLOL SUCC 50MG EXT REL TAB PO SCH (12:23)
[2024-05-11] MEDS: APIXABAN 5 MG TABLET PO SCH (12:23)
[2024-05-11] MEDS: INSULIN ASPART PER UNIT CHARGE SC ONE (12:24)
[2024-05-11 12:34] LABS: Calcium 8.7 mg/dl (8.6-10.3); Magnesium 1.6 mg/dl (1.7-2.4); Potassium 4.9 mmol/L (3.5-5.1)
[2024-05-11 12:42] LABS: BUN Creatinine Ratio 17.5 (10-20); Creatinine Clr Calc Pharmacy 57.5 ml/min; Est GFR (African American) 50.1 ml/min; Est GFR (Non-African American) 43.2 ml/min; Phosphorus 2.7 mg/dl (2.5-4.9)
--- NOTE | 2024-05-11 12:42 | Pharmacy Report ---
Pharmacy Glycemic Short Note 2 - Date of Service May 11, 2024 - Glycemic Short BSG Results (Last 24 hours): 05/10/24 05/10/24 05/11/24 21:50 23:54 00:10 Glucose 1212 H* 1202 H* POC Glucose > 600 H* 05/11/24 05/11/24 05/11/24 01:16 01:24 02:48 Glucose 853 H* POC Glucose > 600 H* 479 H* 05/11/24 05/11/24 05/11/24 03:03 03:21 03:50 Glucose 483 H* POC Glucose 419 H* 355 H* 05/11/24 05/11/24 05/11/24 04:52 05:52 06:46 Glucose POC Glucose 328 H* 318 H* 371 H* 05/11/24 05/11/24 05/11/24 07:38 07:44 08:11 Glucose 279 H POC Glucose 264 H 286 H 05/11/24 05/11/24 05/11/24 09:07 10:13 11:32 Glucose POC Glucose 338 H* 359 H* 362 H* OUTPATIENT ANTIDIABETIC REGIMEN: * None * HbA1c 15.8% on 05/11/24 ASSESSMENT: * 53 yo M with no known prior hx diabetes admitted w severe hyperglycemia and a significantly elevated HbA1c * Although BSG >1000 mg/dL on presentation, not likely HHS since pseudohyponatremia balanced osmol, and effective osmol has remained around 300. * pH low on admission, but may not necessarily be indicative of DKA as anion gap was never elevated and CO2 while slightly low, has not been signific antly low * D/w Dr. Osuna this AM - OK to work on transitioning off the insulin drip. Approved 6 hour overlap w Lantus. PLAN FOR INPATIENT GLYCEMIC CONTROL: * Continue insulin drip, goal range now 140-180 mg/dL to bring down BSG's prior to discontinuation later today at 1630 * Basal insulin * Lantus 25 units SQ x1 now. Additional 0-20 units tonight depending on BSG * Bolus insulin * NovoLog per scale ACHS or Q6hrs while NPO * Goal Range: 120-160 mg/dL * Correction Factor: 25 mg/dL/unit * Nutritional / Prandial insulin per carb ratio of 1 unit per 8 grams CHO consumed
[2024-05-11] MEDS: FAMOTIDINE 20MG IV PUSH 20 MG/5 ML SYR IV SCH (15:16)
--- NOTE | 2024-05-11 16:02 | Hospitalist Progress Note ---
Date of Service May 11, 2024 Assessment & Plan (1) Acute hyperglycemia: Plan: 53M with PMH CAD, sinus tachycardia, pulmonary hypertension, MR, who presented to the ER c/f urinary retention despite urinary urge clinically stable, now admitted for acute management of severe hyperglycemia (BSG-1212), electrolyte derangements discovered on initial labs. Hyperglycemia, new onset DM type 2 -Blood glucose 1212 on initial BMP in the ER. Na-114, K-5.6, Cr-2.44. No anion gap. -Started on IV insulin (10 units) on admission, placed insulin drip orders, per DKA protocol. -Now in the ICU on insulin drip per protocol orders. -Likely represents acute initial presentation of type 2 diabetes mellitus patient has strong family history, with 2 first-degree relatives with type 2 diabetes. * Admitted to ICU on insulin drip , transitioning to Lantus 25 units given * insulin before meals * HgbA1c 15 Hyponatremia/Hyperkalemia/AUTUMN, pseudohyponatremia -improving lasy creatinine 1.77 , Na 126 daily BMP Acute Urinary Retention -Relieved s/p Zimmerman catheter placement in the ER. -Suspect that urinary retention was actually typical presentation of frequent urination, thirst seen at initial presentation of diabetes. -Will keep catheter for now, reassess after primary hyperglycemic process has been managed. * Attempt trial of voiding in the a.m. CAD/Mitral Regurgitation/Pulmonary Hypertension (Chronic Problems) ECHO EF no need for Entresto Tobacco Abuse * Nicotine patch TD Code: Full code Dispo: ICU FEN/GI: NPO. Plasma-Lyte a, per hypoglycemia protocol DVT Prophylaxis: PT/OT: No Consults: Critical Care (2) Hyponatremia: Plan: pseudohyponatremia , last sodium 126 (3) Acute hyperkalemia: Plan: improving (4) AUTUMN (acute kidney injury): Plan: improving (5) Acute retention of urine: Plan: zimmerman placed (6) CAD (coronary artery disease), [place] coronary artery: Plan: ECHO normal EF (7) Pulmonary hypertension: (8) Mitral regurgitation: (9) Tobacco abuse: Plan: nicotine patch Admission and Anticipated Discharge Date Admission Date: May 10, 2024 Subjective reports feeling much better , denies fever, chills , abdominal pain Review of Systems Review of Systems: All systems reviewed & are unremarkable except as noted in Subjective Physical Exam Physical Exam: head atraumatic neck supple chest CTA b/l heart S1S2 regular abdomen soft, nt, nd, BS present extremities no edema neuro AAO times 3 Results & Data Results & Data Vital Signs (Past 12 Hours) Vital Signs Temp Pulse Pulse Resp BP BP Pulse Ox 05/11/24 10:33 91 H 28 H 123/71 05/11/24 09:15 79 15 110/70 98 05/11/24 08:00 78 05/11/24 08:00 36.5 C 05/11/24 07:18 84 22 108/69 99 05/11/24 06:00 81 18 114/72 98 05/11/24 05:00 77 16 110/70 99 05/11/24 04:00 36.9 C 05/11/24 04:00 84 20 99/55 L 97 O2 Del Method 05/11/24 10:33 05/11/24 09:15 05/11/24 08:00 05/11/24 08:00 05/11/24 07:18 05/11/24 06:00 Room Air 05/11/24 05:00 Room Air 05/11/24 04:00 05/11/24 04:00 Room Air Laboratory Results Abnormal lab results 05/10/24 05/10/24 05/10/24 Range/Units 21:50 21:56 23:54 WBC 11.69 H (4.8-10.8) K/ul MPV 12.5 H (9.4-12.4) fL Neut # (Auto) 8.54 H (1.40-6.50) K/uL [place] # (Auto) 1.15 H (0.11-0.59) K/uL VBG pH (7.36-7.41) Sodium 114 L* (136-145) mmol/L Potassium 5.6 H (3.5-5.1) mmol/L Chloride 86 L (98-107) mmol/L Carbon Dioxide 19 L (21-32) mmol/L BUN 48 H (6-23) mg/dl Creatinine 2.44 H (0.6-1.4) mg/dl BUN/Creatinine Ratio (10-20) Glucose 1212 H* (70-99(Fasting)) mg/dl POC Glucose > 600 H* (70-99) mg/dl Hemoglobin A1c (4.5-5.6) % Calcium (8.6-10.3) mg/dl Phosphorus (2.5-4.9) mg/dl Magnesium (1.7-2.4) mg/dl Ur Specific [place] 1.033 H (1.000-1.030) Urine Glucose (UA) 3+ H (Negative) Urine Blood 1+ H (Negative) Urine RBC (Auto) 3-5 H (0-2) /hpf 05/11/24 05/11/24 05/11/24 Range/Units 00:02 00:10 01:16 WBC (4.8-10.8) K/ul MPV (9.4-12.4) fL Neut # (Auto) (1.40-6.50) K/uL [place] # (Auto) (0.11-0.59) K/uL VBG pH 7.25 L (7.36-7.41) Sodium 116 L* (136-145) mmol/L Potassium 6.1 H* (3.5-5.1) mmol/L Chloride 90 L (98-107) mmol/L Carbon Dioxide 19 L (21-32) mmol/L BUN 46 H (6-23) mg/dl Creatinine 2.25 H (0.6-1.4) mg/dl BUN/Creatinine Ratio 20.4 H (10-20) Glucose 1202 H* (70-99(Fasting)) mg/dl POC Glucose > 600 H* (70-99) mg/dl Hemoglobin A1c 15.8 H (4.5-5.6) % Calcium (8.6-10.3) mg/dl Phosphorus 2.4 L (2.5-4.9) mg/dl Magnesium (1.7-2.4) mg/dl Ur Specific [place] (1.000-1.030) Urine Glucose (UA) (Negative) Urine Blood (Negative) Urine RBC (Auto) (0-2) /hpf 05/11/24 05/11/24 05/11/24 Range/Units 01:24 02:48 03:03 WBC (4.8-10.8) K/ul MPV (9.4-12.4) fL Neut # (Auto) (1.40-6.50) K/uL [place] # (Auto) (0.11-0.59) K/uL VBG pH 7.27 L (7.36-7.41) Sodium 126 L D (136-145) mmol/L Potassium (3.5-5.1) mmol/L Chloride (98-107) mmol/L Carbon Dioxide 15 L (21-32) mmol/L BUN 39 H (6-23) mg/dl Creatinine 1.86 H D (0.6-1.4) mg/dl BUN/Creatinine Ratio 21.0 H (10-20) Glucose 853 H* 483 H* (70-99(Fasting)) mg/dl POC Glucose 479 H* (70-99) mg/dl Hemoglobin A1c (4.5-5.6) % Calcium 8.5 L (8.6-10.3) mg/dl Phosphorus 2.2 L (2.5-4.9) mg/dl Magnesium (1.7-2.4) mg/dl Ur Specific [place] (1.000-1.030) Urine Glucose (UA) (Negative) Urine Blood (Negative) Urine RBC (Auto) (0-2) /hpf 05/11/24 05/11/24 05/11/24 Range/Units 03:21 03:50 04:52 WBC (4.8-10.8) K/ul MPV (9.4-12.4) fL Neut # (Auto) (1.40-6.50) K/uL [place] # (Auto) (0.11-0.59) K/uL VBG pH (7.36-7.41) Sodium (136-145) mmol/L Potassium (3.5-5.1) mmol/L Chloride (98-107) mmol/L Carbon Dioxide (21-32) mmol/L BUN (6-23) mg/dl Creatinine (0.6-1.4) mg/dl BUN/Creatinine Ratio (10-20) Glucose (70-99(Fasting)) mg/dl POC Glucose 419 H* 355 H* 328 H* (70-99) mg/dl Hemoglobin A1c (4.5-5.6) % Calcium (8.6-10.3) mg/dl Phosphorus (2.5-4.9) mg/dl Magnesium (1.7-2.4) mg/dl Ur Specific [place] (1.000-1.030) Urine Glucose (UA) (Negative) Urine Blood (Negative) Urine RBC (Auto) (0-2) /hpf 05/11/24 05/11/24 05/11/24 Range/Units 05:52 06:46 07:38 WBC (4.8-10.8) K/ul MPV (9.4-12.4) fL Neut # (Auto) (1.40-6.50) K/uL [place] # (Auto) (0.11-0.59) K/uL VBG pH (7.36-7.41) Sodium (136-145) mmol/L Potassium (3.5-5.1) mmol/L Chloride (98-107) mmol/L Carbon Dioxide (21-32) mmol/L BUN (6-23) mg/dl Creatinine (0.6-1.4) mg/dl BUN/Creatinine Ratio (10-20) Glucose (70-99(Fasting)) mg/dl POC Glucose 318 H* 371 H* 264 H (70-99) mg/dl Hemoglobin A1c (4.5-5.6) % Calcium (8.6-10.3) mg/dl Phosphorus (2.5-4.9) mg/dl Magnesium (1.7-2.4) mg/dl Ur Specific [place] (1.000-1.030) Urine Glucose (UA) (Negative) Urine Blood (Negative) Urine RBC (Auto) (0-2) /hpf 05/11/24 05/11/24 05/11/24 Range/Units 07:44 07:48 08:11 WBC (4.8-10.8) K/ul MPV (9.4-12.4) fL Neut # (Auto) (1.40-6.50) K/uL [place] # (Auto) (0.11-0.59) K/uL VBG pH 7.25 L (7.36-7.41) Sodium 130 L (136-145) mmol/L Potassium (3.5-5.1) mmol/L Chloride (98-107) mmol/L Carbon Dioxide 20 L (21-32) mmol/L BUN 33 H (6-23) mg/dl Creatinine 1.68 H (0.6-1.4) mg/dl BUN/Creatinine Ratio (10-20) Glucose 279 H (70-99(Fasting)) mg/dl POC Glucose 286 H (70-99) mg/dl Hemoglobin A1c (4.5-5.6) % Calcium (8.6-10.3) mg/dl Phosphorus 2.3 L (2.5-4.9) mg/dl Magnesium (1.7-2.4) mg/dl Ur Specific [place] (1.000-1.030) Urine Glucose (UA) (Negative) Urine Blood (Negative) Urine RBC (Auto) (0-2) /hpf 05/11/24 05/11/24 05/11/24 Range/Units 09:07 10:13 11:32 WBC (4.8-10.8) K/ul MPV (9.4-12.4) fL Neut # (Auto) (1.40-6.50) K/uL [place] # (Auto) (0.11-0.59) K/uL VBG pH (7.36-7.41) Sodium (136-145) mmol/L Potassium (3.5-5.1) mmol/L Chloride (98-107) mmol/L Carbon Dioxide (21-32) mmol/L BUN (6-23) mg/dl Creatinine (0.6-1.4) mg/dl BUN/Creatinine Ratio (10-20) Glucose (70-99(Fasting)) mg/dl POC Glucose 338 H* 359 H* 362 H* (70-99) mg/dl Hemoglobin A1c (4.5-5.6) % Calcium (8.6-10.3) mg/dl Phosphorus (2.5-4.9) mg/dl Magnesium (1.7-2.4) mg/dl Ur Specific [place] (1.000-1.030) Urine Glucose (UA) (Negative) Urine Blood (Negative) Urine RBC (Auto) (0-2) /hpf 05/11/24 05/11/24 05/11/24 Range/Units 12:03 12:43 13:42 WBC (4.8-10.8) K/ul MPV (9.4-12.4) fL Neut # (Auto) (1.40-6.50) K/uL [place] # (Auto) (0.11-0.59) K/uL VBG pH (7.36-7.41) Sodium 126 L (136-145) mmol/L Potassium (3.5-5.1) mmol/L Chloride (98-107) mmol/L Carbon Dioxide 16 L (21-32) mmol/L BUN 31 H (6-23) mg/dl Creatinine 1.77 H (0.6-1.4) mg/dl BUN/Creatinine Ratio (10-20) Glucose 409 H* (70-99(Fasting)) mg/dl POC Glucose 395 H* 341 H* (70-99) mg/dl Hemoglobin A1c (4.5-5.6) % Calcium (8.6-10.3) mg/dl Phosphorus (2.5-4.9) mg/dl Magnesium 1.6 L (1.7-2.4) mg/dl Ur Specific [place] (1.000-1.030) Urine Glucose (UA) (Negative) Urine Blood (Negative) Urine RBC (Auto) (0-2) /hpf 05/11/24 Range/Units 14:51 WBC (4.8-10.8) K/ul MPV (9.4-12.4) fL Neut # (Auto) (1.40-6.50) K/uL [place] # (Auto) (0.11-0.59) K/uL VBG pH (7.36-7.41) Sodium (136-145) mmol/L Potassium (3.5-5.1) mmol/L Chloride (98-107) mmol/L Carbon Dioxide (21-32) mmol/L BUN (6-23) mg/dl Creatinine (0.6-1.4) mg/dl BUN/Creatinine Ratio (10-20) Glucose (70-99(Fasting)) mg/dl POC Glucose 294 H (70-99) mg/dl Hemoglobin A1c (4.5-5.6) % Calcium (8.6-10.3) mg/dl Phosphorus (2.5-4.9) mg/dl Magnesium (1.7-2.4) mg/dl Ur Specific [place] (1.000-1.030) Urine Glucose (UA) (Negative) Urine Blood (Negative) Urine RBC (Auto) (0-2) /hpf PG Care Time/CCT Total # of Minutes Spent Total Time Spent with Patient: Total time spent is greater than 50% in coordination of care (as documented) at patient's floor/unit and/or counseling patient: Coding Level of Care Code 06435 SUB INP/OBS CARE 2/35MIN Diagnoses Acute hyperglycemia R73.9 Hyponatremia E87.1 Acute hyperkalemia E87.5 AUTUMN (acute kidney injury) N17.9 Acute retention of urine R33.8 Coronary artery disease involving [place] coronary artery of [place] heart without angina pectoris I25.10 [place] vs. transplanted heart: [place] heart Associated angina: without angina Pulmonary hypertension I27.20 Mitral valve insufficiency, unspecified etiology I34.0 Cardiac valve disease etiology: etiology unspecified Tobacco abuse Z72.0 (6) CAD (coronary artery disease), [place] coronary artery [place] vs. transplanted heart: [place] heart Associated angina: without angina Qualified Code(s): I25.10 - Atherosclerotic heart disease of [place] coronary artery without angina pectoris (8) Mitral regurgitation Cardiac valve disease etiology: etiology unspecified Qualified Code(s): I34.0 - Nonrheumatic mitral (valve) insufficiency
[2024-05-11 16:33] LABS: BUN Creatinine Ratio 16.5 (10-20); Calcium 8.3 mg/dl (8.6-10.3); Creatinine Clr Calc Pharmacy 54.1 ml/min; Est GFR (African American) 46.5 ml/min; Est GFR (Non-African American) 40.2 ml/min; Magnesium 1.6 mg/dl (1.7-2.4); Phosphorus 1.8 mg/dl (2.5-4.9); Potassium 4.3 mmol/L (3.5-5.1)
[2024-05-11] MEDS: INSULIN DRIP - STOP ORDER ONE (17:23)
[2024-05-11 20:26] LABS: Calcium 8.3 mg/dl (8.6-10.3); Creatinine Clr Calc Pharmacy 49.1 ml/min; Est GFR (African American) 41.4 ml/min; Est GFR (Non-African American) 35.7 ml/min; Magnesium 1.6 mg/dl (1.7-2.4)
[2024-05-12] MEDS: INSULIN ASPART PER UNIT CHARGE SC SCH (00:03)
[2024-05-12 08:29] LABS: Calcium 8.1 mg/dl (8.6-10.3)
[2024-05-12 08:35] LABS: BUN Creatinine Ratio 15.7 (10-20); Creatinine Clr Calc Pharmacy 59.1 ml/min; Est GFR (African American) 51.8 ml/min; Est GFR (Non-African American) 44.7 ml/min
[2024-05-12] MEDS: LANTUS PER UNIT CHARGE SC SCH ×2 (09:06→20:53)
--- NOTE | 2024-05-12 15:25 | Hospitalist Progress Note ---
Date of Service May 12, 2024 Assessment & Plan (1) Acute hyperglycemia: Plan: 53M with PMH CAD, sinus tachycardia, pulmonary hypertension, MR, who presented to the ER c/f urinary retention despite urinary urge clinically stable, now admitted for acute management of severe hyperglycemia (BSG-1212), electrolyte derangements discovered on initial labs. Hyperglycemia, new onset DM type 2 -Blood glucose 1212 on initial BMP in the ER. Na-114, K-5.6, Cr-2.44. No anion gap. -Was treated in the ICU with insulin drip and IV fluids Currently on Lantus 20 units (2) Hyponatremia: Plan: pseudohyponatremia , Sodium 135 today (3) Acute hyperkalemia: Plan: Improved (4) AUTUMN (acute kidney injury): Plan: improving Creatinine 1.72 today He may have some degree of chronic kidney disease (5) Acute retention of urine: Plan: zimmerman placed (6) CAD (coronary artery disease), [place] coronary artery: Plan: ECHO normal EF (7) Pulmonary hypertension: (8) Mitral regurgitation: (9) Tobacco abuse: Plan: nicotine patch Plan Full code DVT prophylaxis: Eliquis Admission and Anticipated Discharge Date Admission Date: May 10, 2024 Subjective Patient feels well. Denies chest pain or shortness of breath. Review of Systems Review of Systems: All systems reviewed & are unremarkable except as noted in Subjective Physical Exam Physical Exam: General: Awake, conversant Heart: S1, S2/regular rate and rhythm, no murmur rubs or gallops Lungs: Clear to auscultation bilaterally. Normal effort Abdomen: Soft/nontender/nondistended. No hepatosplenomegaly Extremities: No clubbing/cyanosis. No edema Behavior: Appropriate, cooperative Results & Data Results & Data Vital Signs (Past 12 Hours) Vital Signs Temp Pulse Pulse Resp BP Pulse Ox O2 Del Method 05/12/24 11:43 36.7 C 74 18 112/75 97 Room Air 05/12/24 07:54 36.9 C 75 18 107/70 97 Room Air 05/12/24 07:32 75 Laboratory Results Abnormal lab results 05/11/24 05/11/24 05/11/24 Range/Units 15:47 16:18 19:51 Sodium 130 L 133 L (136-145) mmol/L Chloride 108 H (98-107) mmol/L Carbon Dioxide 20 L 19 L (21-32) mmol/L BUN 31 H 31 H (6-23) mg/dl Creatinine 1.88 H 2.07 H (0.6-1.4) mg/dl Glucose 272 H 158 H (70-99(Fasting)) mg/dl POC Glucose 246 H (70-99) mg/dl Calcium 8.3 L 8.3 L (8.6-10.3) mg/dl Phosphorus 1.8 L 2.0 L (2.5-4.9) mg/dl Magnesium 1.6 L 1.6 L (1.7-2.4) mg/dl Digoxin (0.8-2.0) ng/ml 05/11/24 05/11/24 05/12/24 Range/Units 20:11 23:58 04:02 Sodium (136-145) mmol/L Chloride (98-107) mmol/L Carbon Dioxide (21-32) mmol/L BUN (6-23) mg/dl Creatinine (0.6-1.4) mg/dl Glucose (70-99(Fasting)) mg/dl POC Glucose 161 H 196 H 173 H (70-99) mg/dl Calcium (8.6-10.3) mg/dl Phosphorus (2.5-4.9) mg/dl Magnesium (1.7-2.4) mg/dl Digoxin (0.8-2.0) ng/ml 05/12/24 05/12/24 05/12/24 Range/Units 05:38 05:39 07:52 Sodium 135 L (136-145) mmol/L Chloride 109 H (98-107) mmol/L Carbon Dioxide 20 L (21-32) mmol/L BUN 27 H (6-23) mg/dl Creatinine 1.72 H D (0.6-1.4) mg/dl Glucose 152 H (70-99(Fasting)) mg/dl POC Glucose 173 H (70-99) mg/dl Calcium 8.1 L (8.6-10.3) mg/dl Phosphorus (2.5-4.9) mg/dl Magnesium (1.7-2.4) mg/dl Digoxin < 0.3 L (0.8-2.0) ng/ml 05/12/24 Range/Units 11:51 Sodium (136-145) mmol/L Chloride (98-107) mmol/L Carbon Dioxide (21-32) mmol/L BUN (6-23) mg/dl Creatinine (0.6-1.4) mg/dl Glucose (70-99(Fasting)) mg/dl POC Glucose 242 H (70-99) mg/dl Calcium (8.6-10.3) mg/dl Phosphorus (2.5-4.9) mg/dl Magnesium (1.7-2.4) mg/dl Digoxin (0.8-2.0) ng/ml PG Care Time/CCT Total # of Minutes Spent Total Time Spent with Patient: Total time spent is greater than 50% in coordination of care (as documented) at patient's floor/unit and/or counseling patient: Coding Level of Care Code 06192 SUB INP/OBS CARE 2/35MIN Diagnoses Acute hyperglycemia R73.9 Hyponatremia E87.1 Acute hyperkalemia E87.5 AUTUMN (acute kidney injury) N17.9 Acute retention of urine R33.8 Coronary artery disease involving [place] coronary artery of [place] heart without angina pectoris I25.10 [place] vs. transplanted heart: [place] heart Associated angina: without angina Pulmonary hypertension I27.20 Mitral valve insufficiency, unspecified etiology I34.0 Cardiac valve disease etiology: etiology unspecified Tobacco abuse Z72.0 (6) CAD (coronary artery disease), [place] coronary artery [place] vs. transplanted heart: [place] heart Associated angina: without angina Qualified Code(s): I25.10 - Atherosclerotic heart disease of [place] coronary artery without angina pectoris (8) Mitral regurgitation Cardiac valve disease etiology: etiology unspecified Qualified Code(s): I34.0 - Nonrheumatic mitral (valve) insufficiency
[2024-05-13 06:50] LABS: BUN Creatinine Ratio 15.1 (10-20); Calcium 7.9 mg/dl (8.6-10.3); Creatinine Clr Calc Pharmacy 73.5 ml/min; Est GFR (African American) 67.1 ml/min; Est GFR (Non-African American) 57.9 ml/min; Magnesium 1.8 mg/dl (1.7-2.4); Phosphorus 2.3 mg/dl (2.5-4.9)
[2024-05-13] MEDS: LANTUS PER UNIT CHARGE SC SCH (09:04)
--- NOTE | 2024-05-13 13:46 | Pharmacy Report ---
Pharmacy Glycemic Short Note 2 - Date of Service May 13, 2024 - Glycemic Short BSG Results (Last 24 hours): 05/12/24 05/12/24 05/13/24 16:59 20:08 05:51 Glucose 260 H POC Glucose 134 H 172 H 05/13/24 05/13/24 08:09 12:14 Glucose POC Glucose 263 H 156 H OUTPATIENT ANTIDIABETIC REGIMEN: * None HbA1c: 15.8% (05/11/24) ASSESSMENT: 05/13/24: * Blood sugars reasonably controlled yesterday w/ elevation at lunchtime of 242 mg/dL * Fasting blood sugar of 263 mg/dL this morning -> will increase basal insulin today * AUTUMN resolving (SCr 2.4 -> 1.7 -> 1.39 mg/dL) 05/11/24: * 53 yo M with no known prior hx diabetes admitted w severe hyperglycemia and a significantly elevated HbA1c * Although BSG >1000 mg/dL on presentation, not likely HHS since pseudohyponatremia balanced osmol, and effective osmol has remained around 300. * pH low on admission, but may not necessarily be indicative of DKA as anion gap was never elevated and CO2 while slightly low, has not been significantly low * D/w Dr. Osuna this AM - OK to work on transitioning off the insulin drip. Approved 6 hour overlap w Lantus. PLAN FOR INPATIENT GLYCEMIC CONTROL: * Basal insulin * Lantus 30 units SC daily * Lantus 0-5-10 units SC HS (see EHR for details) * Bolus insulin * NovoLog per scale ACHS or Q6hrs while NPO * Goal Range: 110-140 mg/dL * Correction Factor: 20 mg/dL/unit * Nutritional / Prandial insulin per carb ratio of 1 unit per 7 grams CHO consumed
--- NOTE | 2024-05-13 15:49 | Hospitalist Progress Note ---
Date of Service May 13, 2024 Assessment & Plan (1) Acute hyperglycemia: Plan: 53M with PMH CAD, sinus tachycardia, pulmonary hypertension, MR, who presented to the ER c/f urinary retention despite urinary urge clinically stable, now admitted for acute management of severe hyperglycemia (BSG-1212), electrolyte derangements discovered on initial labs. Hyperglycemia, new onset DM type 2 -Blood glucose 1212 on initial BMP in the ER. Na-114, K-5.6, Cr-2.44. No anion gap. -Was treated in the ICU with insulin drip and IV fluids Currently on Lantus Awaiting diabetes education. Patient will be discharged on insulin for the first time. Will need diabetes education prior to discharge (2) Hyponatremia: Plan: pseudohyponatremia , Sodium 135 today (3) Acute hyperkalemia: Plan: Improved (4) AUTUMN (acute kidney injury): Plan: improving Creatinine 1.39 today He may have some degree of chronic kidney disease (5) Acute retention of urine: Plan: zimmerman placed (6) CAD (coronary artery disease), [place] coronary artery: Plan: ECHO normal EF (7) Pulmonary hypertension: (8) Mitral regurgitation: (9) Tobacco abuse: Plan: nicotine patch Plan Full code DVT prophylaxis: Eliquis Admission and Anticipated Discharge Date Admission Date: May 10, 2024 Subjective Patient feels well. Denies chest pain or shortness of breath. Review of Systems Review of Systems: All systems reviewed & are unremarkable except as noted in Subjective Physical Exam Physical Exam: General: Awake, conversant Heart: S1, S2/regular rate and rhythm, no murmur rubs or gallops Lungs: Clear to auscultation bilaterally. Normal effort Abdomen: Soft/nontender/nondistended. No hepatosplenomegaly Extremities: No clubbing/cyanosis. No edema Behavior: Appropriate, cooperative Results & Data Results & Data Vital Signs (Past 12 Hours) Vital Signs Temp Pulse Pulse Resp BP BP Pulse Ox 05/13/24 11:10 36.7 C 87 20 158/98 H 97 05/13/24 07:25 82 05/13/24 06:33 36.9 C 84 20 129/88 97 05/13/24 03:51 37.2 C 81 20 102/56 L 93 O2 Del Method 05/13/24 11:10 Room Air 05/13/24 07:25 05/13/24 06:33 Room Air 05/13/24 03:51 Room Air Laboratory Results Abnormal lab results 05/12/24 05/12/24 05/13/24 Range/Units 16:59 20:08 05:51 Sodium 135 L (136-145) mmol/L Chloride 110 H (98-107) mmol/L Carbon Dioxide 20 L (21-32) mmol/L Glucose 260 H (70-99(Fasting)) mg/dl POC Glucose 134 H 172 H (70-99) mg/dl Calcium 7.9 L (8.6-10.3) mg/dl Phosphorus 2.3 L (2.5-4.9) mg/dl 05/13/24 05/13/24 Range/Units 08:09 12:14 Sodium (136-145) mmol/L Chloride (98-107) mmol/L Carbon Dioxide (21-32) mmol/L Glucose (70-99(Fasting)) mg/dl POC Glucose 263 H 156 H (70-99) mg/dl Calcium (8.6-10.3) mg/dl Phosphorus (2.5-4.9) mg/dl PG Care Time/CCT Total # of Minutes Spent Total Time Spent with Patient: Total time spent is greater than 50% in coordination of care (as documented) at patient's floor/unit and/or counseling patient: Coding Level of Care Code 60471 SUB INP/OBS CARE 2/35MIN Diagnoses Acute hyperglycemia R73.9 Hyponatremia E87.1 Acute hyperkalemia E87.5 AUTUMN (acute kidney injury) N17.9 Acute retention of urine R33.8 Coronary artery disease involving [place] coronary artery of [place] heart without angina pectoris I25.10 [place] vs. transplanted heart: [place] heart Associated angina: without angina Pulmonary hypertension I27.20 Mitral valve insufficiency, unspecified etiology I34.0 Cardiac valve disease etiology: etiology unspecified Tobacco abuse Z72.0 (6) CAD (coronary artery disease), [place] coronary artery [place] vs. transplanted heart: [place] heart Associated angina: without angina Qualified Code(s): I25.10 - Atherosclerotic heart disease of [place] coronary artery without angina pectoris (8) Mitral regurgitation Cardiac valve disease etiology: etiology unspecified Qualified Code(s): I34.0 - Nonrheumatic mitral (valve) insufficiency
[2024-05-13 20:03] VITALS: RESP 18
[2024-05-14 06:41] LABS: BUN Creatinine Ratio 11.6 (10-20); Calcium 7.9 mg/dl (8.6-10.3); Creatinine Clr Calc Pharmacy 74.4 ml/min; Est GFR (African American) 67.6 ml/min; Est GFR (Non-African American) 58.4 ml/min; Magnesium 1.7 mg/dl (1.7-2.4); Phosphorus 2.5 mg/dl (2.5-4.9); Potassium 3.9 mmol/L (3.5-5.1)
[2024-05-14 07:51] VITALS: O2SAT 98
[2024-05-14] MEDS: FAMOTIDINE 20 MG TAB PO SCH (09:44)
--- NOTE | 2024-05-14 11:17 | Discharge Summary ---
Date of Service May 14, 2024 Admission HPI Per Admitting Provider Danial is a 53-year-old man with past medical history of bilateral PE, CHF, MR, pulmonary hypertension, and nonischemic cardiomyopathy, who presented to the ER today with a complaint of an inability to void despite an increased urge to urinate. ROS + slight fatigue. Otherwise, he denied fever, chills flank pain, abdominal pain, hematuria. In the ER, Neri catheter was placed, after which he immediately felt better. Initial labs were notable for for WBC-11.69, Na-114, K+ 5.6, Cr-2.44 (baseline 1.0-1.2), and serum glucose of 1212. He received NS boluses x 2 L and a dose of Pyridium. Hospitalist service was then consulted for admission. On admission, patient corroborated ER HPI. He also expressed a strong family history (mother, sister) of type 2 diabetes mellitus. He further admits to having a poor diet, admitting to consuming "a lot of sugary drinks." ROS+ slight fatigue. Otherwise ROS negative. Patient follows with Gamal Bowser of cardiology, last seen almost a year ago (05/26/2023 recommended follow-up in 1 year) for a now-resolved systolic CHF, as well as mitral regurgitation, pulmonary hypertension, and sinus tachycardia. Otherwise, he has no PCP or other chronic conditions. Patient was immediately started on 10 units of IV insulin, and an additional 2 L LR bolus. Following brief review of labs, and discussion with pugger helper attending, decision was made to transfer patient to [facility] ICU for urgent management. The assistant professor of art to the ICU physician was then notified verbally via phone and the patient was subsequently accepted for management. Admission Exam Per Admitting Provider General: no acute distress, speaking in full sentences Resp: good inspiratory effort, no labored breathing HEENT: conjunctivae appear clear, no audible congestion, no swelling noted face or lips Skin: skin appears dry, normal coloration, no rash visible on exposed skin areas Neuro: alert and oriented x3, no focal deficits appreciated Psych: euthymic affect, pleasant and interactive, logical thought process Principal Diagnosis Hyperglycemic hyperosmolar nonketotic coma (HONK) New diagnosis of diabetes, will be discharged on insulin Hyperkalemia Pseudohyponatremia Acute kidney injury Acute urinary retention Discharge Exam General: Awake, conversant Heart: S1, S2/regular rate and rhythm, no murmur rubs or gallops Lungs: Clear to auscultation bilaterally. Normal effort Abdomen: Soft/nontender/nondistended. No hepatosplenomegaly Extremities: No clubbing/cyanosis. No edema Behavior: Appropriate, cooperative Discharge Data Allergies Allergy/AdvReac Type Severity Reaction Status Date / Time cefaclor [From Ceclor] Allergy Severe Hives Unverified 05/11/24 00:04 Penicillins Allergy Severe Rash Unverified 05/11/24 00:04 bee venom protein (honey bee) Allergy Intermediate Unknown Unverified 05/11/24 00:04 cat dander Allergy Intermediate itchy Unverified 05/11/24 00:04 watery eyes Consultations 05/10/24 23:12 ED Decision to Admit Stat 05/10/24 23:56 Consult Steamer Operator Routine Hospital Course (1) Acute hyperglycemia: 53M with PMH CAD, sinus tachycardia, pulmonary hypertension, MR, who presented to the ER c/f urinary retention despite urinary urge clinically stable, now admitted for acute management of severe hyperglycemia (BSG-1212), electrolyte derangements discovered on initial labs. Hyperglycemia, new onset DM type 2 -Blood glucose 1212 on initial BMP in the ER. Na-114, K-5.6, Cr-2.44. No anion gap. -Was treated in the ICU with insulin drip and IV fluids Currently on Lantus 30 units every morning plus metformin Was seen by diabetes education during this hospitalization Patient will be discharged on insulin for the first time. (2) Hyponatremia: pseudohyponatremia , Sodium 135 today (3) Acute hyperkalemia: Improved (4) AUTUMN (acute kidney injury): improving Resolved (5) Acute retention of urine: Neri catheter removed (6) CAD (coronary artery disease), [place] coronary artery: ECHO normal EF (7) Pulmonary hypertension: (8) Mitral regurgitation: (9) Tobacco abuse: Advised on smoking cessation Plan Full code DVT prophylaxis: Eliquis Total Time Total Time Spent Total Time Spent (In Minutes): 35 Discharge Plan Discharge Items Patient Disposition: Home - Self-Care Reason For Visit: HYPERGLYCEMIA, FREQUENT URINATION Discharge Diagnosis: Hyperglycemic hyperosmolar nonketotic coma (HONK) New diagnosis of diabetes, will be discharged on insulin Hyperkalemia Pseudohyponatremia Acute kidney injury Acute urinary retention Condition on Discharge: Good Activity: Resume your previous activity Non-emergency contact: Primary Care Provider Call non-emergency contact if: you have any medication questions and your symptoms worsen Follow-up/Referrals: Wilfred Maharaj [Outside Practitioners] - 05/30/24 1:00 pm ([facility] ) Diet: Carb Consistent or DM2 and Heart Healthy Addtl Attending Provider Instructions: Advised to follow-up with PCP in 1 week Pending Studies at Discharge: No Stand-Alone Forms: My [facility] [place], Smoking Cessation Medications and DC Order Prescriptions: New insulin glargine [Lantus Solostar U-100 Insulin] 100 unit/mL (3 mL) insulin pen 30 unit subcut QAM Qty: 3 0RF (DME) pen needle, diabetic [Pen Needle] 32 gauge x 5/32" needle See Rx Instructions .Route Qty: 100 0RF Rx Instructions: As directed to use once per day metformin 500 mg tablet 500 mg PO DAILY Qty: 30 0RF (DME) Contour Next Test Strips Strip See Rx Instructions .Route Qty: 25 0RF Rx Instructions: As directed to use 3 times per day (DME) lancets [Microlet Lancet] Misc See Rx Instructions .Route Qty: 100 0RF Rx Instructions: As directed to check 3 times per day Continued atorvastatin 40 mg tablet 40 mg PO DAILY Qty: 90 3RF metoprolol succinate 200 mg tablet extended release 24 hr 200 mg PO QAM Qty: 90 3RF digoxin 125 mcg (0.125 mg) tablet 125 mcg PO DAILY Qty: 90 3RF Eliquis 5 mg tablet 5 mg PO BID Qty: 180 3RF sacubitril-valsartan 97-103 mg tablet 1 tab PO BID Qty: 60 11RF aspirin [Ecotrin Low Strength] 81 mg Tablet,Delayed Release (Dr/Ec) 81 mg PO QAM Qty: 90 3RF Discharge Orders: Discharge Order (Routine); Ordered 05/14/24 Ordered By: Sasha Ireland Admission Data Admit Date/Time: 05/10/24 23:54 Attending Provider: Sasha Ireland Admit Provider: Karen Chavarria Primary Care Provider: PCP,NO Other Providers: Benny Silva; Villa Osuna Other Interventions: Discharge Summary Assessment (RN) Last Done: 05/14/24 11:18
[2024-05-14 11:26] VITALS: BP 119/73; PULSE 75; TEMP 98.6
== END 2024-05-14 14:09 | disposition home or self-care (01) | DRG 638 ==
LOC: ED 20:57 → SUATTDRO 23:54 → 1E 23:54 → 2W 05-11 19:04